=== PATIENT | female | born 1955 | race Caucasian/White ===

== ENCOUNTER 2020-01-26 10:39 | Outpatient (CLI) | payer MEDICARE, SELFPAY ==
--- NOTE | ~2020-01-26 | MR_ITS ---
EXAMINATION: MR brain/brain stem wo con DATE: 01/26/2020 11:54 INDICATION: Polyneuropathy TECHNIQUE: Magnetic resonance imaging (MRI) of the brain and brainstem was performed without intraven ous contrast. Sequences included sagittal and axial T1-weighted SE, axial diffusion-weighted FS SE, a xial T2*-weighted GRE, axial T2-weighted FLAIR, and axial T2-weighted FSE. Apparent diffusion coeffic ient (ADC) maps were created. COMPARISON: None. FINDINGS: There are no areas of restricted diffusion to suggest acute infarction. No intracranial hemorrhage or abnormal intracranial mass lesion. There are no intraparenchymal signal abnormalities seen on the ot her pulse sequences. The ventricles are symmetric and normal in size. There are no abnormal extra-axi al fluid collections. Flow voids are seen in the cerebral arteries on the T2-weighted sequences consi stent with their expected patency. Left vertebral artery is dominant. Visualized orbits and soft tiss ues are unremarkable. Mild mucosal thickening in the bilateral ethmoid sinuses. IMPRESSION: 1. Normal brain. Reviewed, dictated and finalized at location A. IMPRESSION: 1. Normal brain.
== END 2020-01-26 10:40 | disposition home or self-care (01) ==
PROVIDERS: PCP Internal Medicine; Visit Provider Internal Medicine
DX: M25.572 Pain in left ankle and joints of left foot (principal)
CPT/HCPCS: 70551

== ENCOUNTER 2022-06-23 14:01 | Outpatient (CLI) | payer MEDICARE, SELFPAY ==
--- NOTE | ~2022-06-23 | XR_ITS ---
EXAMINATION: XR foot LT min 3V, XR foot RT min 3V DATE: 06/23/2022 14:48 INDICATION: Polyneuropathy with paresthesias at both feet TECHNIQUE: 1. Dorsoplantar, two oblique and lateral views of the left foot were obtained. 2. Dorsoplantar, two oblique and lateral views of the right foot were obtained. COMPARISON: None. FINDINGS: Bilateral hallux valgus and associated bunions with mild hypertrophic change at the medial heads of t he bilateral first metatarsals. There is also mild bilateral pes planus. No fractures. Moderate-sized bilateral plantar calcaneal spurs. Mild polyarticular osteoarthritis most prominent at the bilateral first metatarsophalangeal joints and to lesser degree at multiple additional joints in the bilateral feet. Large likely benign lytic lesion measuring 1.3 cm in diameter with well-defined thin sclerotic margins within the left navicula most likely representing a large geode. Soft tissues are unremarkab le. No ankle joint effusions. IMPRESSION: 1. Bilateral pes planus and hallux valgus with bunion formation. 2. Mild polyarticular osteoarthritis at the bilateral feet most prominent at the first metatarsophala ngeal joints and with likely associated large geode within the left navicula. Reviewed, dictated and finalized at location B. IMPRESSION: 1. Bilateral pes planus and hallux valgus with bunion formation. 2. Mild polyarticular osteoarthritis at the bilateral feet most prominent at th e first metatarsophalangeal joints and with likely associated large geode withi n the left navicula.
== END 2022-06-23 14:02 | disposition home or self-care (01) ==
PROVIDERS: PCP Internal Medicine; Visit Provider Internal Medicine
DX: G62.9 Polyneuropathy, unspecified (principal); M19.071 Primary osteoarthritis, right ankle and foot; M19.072 Primary osteoarthritis, left ankle and foot; M20.11 Hallux valgus (acquired), right foot; M20.12 Hallux valgus (acquired), left foot; M21.42 Flat foot [pes planus] (acquired), left foot; M21.41 Flat foot [pes planus] (acquired), right foot
CPT/HCPCS: 73630

== ENCOUNTER 2022-11-17 14:07 | Outpatient (CLI) | payer MEDICARE, SELFPAY ==
--- NOTE | ~2022-11-17 | XR_ITS ---
XR cervical spine 4-5V DATE: 11/17/2022 14:47 INDICATION: Neck pain, radiating to both upper extremities. No injury. TECHNIQUE: AP view. Lateral views in flexion, neutral and extension. COMPARISON: None FINDINGS: There is approximately 1.5-2 mm anterolisthesis at C2-3, relatively stable in flexion, exte nsion and neutral. Moderate degenerative disc disease at C5-C6, moderately severe degenerative disc disease at C6-7. Minimal anterolisthesis at C7-T1. There is degenerative change at the apophyseal joints and minimal lower cervical uncovertebral joints . No fracture or dislocation or locked facet or prevertebral soft tissue swelling. IMPRESSION: Cervical spondylosis Reviewed, dictated and finalized at location B. STRIAL ENGINEERING MANAGER IMPRESSION: Cervical spondylosis
== END 2022-11-17 14:08 | disposition home or self-care (01) ==
PROVIDERS: PCP Internal Medicine; Visit Provider Internal Medicine
DX: M47.892 Other spondylosis, cervical region (principal)
CPT/HCPCS: 72050

== ENCOUNTER 2023-04-19 13:48 | Outpatient (CLI) | payer MEDICARE, SELFPAY ==
--- NOTE | ~2023-04-19 | XR_ITS ---
Clinical Indication: Cough PA and lateral views of the chest: Comparison: 10/28/2014 Findings: The lungs are clear, without evidence of focal consolidation or pleural effusion. COPD manolo leta present. Cardiomediastinal silhouette is within normal limits. Bones and soft tissues are unremar kable. Impression: COPD. Clear lungs. Reviewed, dictated and finalized at location . Impression: COPD. Clear lungs.
[2023-04-19 14:17] LABS: Basophils Absolute Auto 0.1 K/mm3 (0.0-0.1); Basophils Percent Auto 0.8 % (0.2-1.2); Eosinophils Absolute Auto 0.1 K/mm3 (0-0.3); Eosinophils Percent Auto 1.6 % (0-4.4); Hematocrit 39.4 % (37.0-47.0); Hemoglobin 12.5 g/dL (12.0-15.0); Immature Granulocyte Absolute 0.02 K/mm3 (0.00-0.031); Immature Granulocyte Percent A 0.3 % (0-0.5); Lymphocytes Absolute Auto 1.35 K/mm3 (0.9-3.2); Lymphocytes Percent Auto 20.9 % (18.3-44.2); Mean Corpuscular HGB Conc 31.7 g/dl (32-36); Mean Corpuscular Hemoglobin 29.7 pg (26-34); Mean Corpuscular Volume 93.6 fl (80-100); Mean Platelet Volume 10.7 fl (7.4-10.4); Monocytes Absolute Auto 0.4 K/mm3 (0.1-0.6); Monocytes Percent Auto 6.8 % (2.6-8.5); Neutrophils Absolute Auto 4.5 K/mm3 (1.3-6.7); Neutrophils Percent Auto 69.6 % (45.5-73.1); Platelet Count Result 230 k/mm3 (150-375); Red Blood Count 4.21 M/mm3 (4.2-5.4); Red Cell Distribution Width 13.4 % (11.5-14.5); White Blood Count 6.5 K/mm3 (4.5-10.0)
== END 2023-04-19 13:49 | disposition home or self-care (01) ==
PROVIDERS: PCP Internal Medicine; Visit Provider Internal Medicine
DX: R05.9 Cough, unspecified (principal); J44.9 Chronic obstructive pulmonary disease, unspecified
CPT/HCPCS: 36415; 71046; 85025; 87081

== ENCOUNTER 2023-07-05 10:50 | Outpatient (CLI) | payer MEDICARE, SELFPAY | END 2023-07-05 10:51 | disposition home or self-care (01) | LOC: ANHAUDIO 10:50 | PROVIDERS: PCP Internal Medicine; Visit Provider Otolaryngology | DX: H90.3 Sensorineural hearing loss, bilateral (principal) | CPT/HCPCS: 92557; 92567 ==

== ENCOUNTER 2024-07-09 14:19 | Outpatient (CLI) | payer MEDICARE, SELFPAY ==
--- NOTE | ~2024-07-09 | XR_ITS ---
Clinical Indication: Cough PA and lateral views of the chest: Comparison: 04/19/2023 Findings: The lungs are clear, without evidence of focal consolidation or pleural effusion. Possible COPD. Cardiomediastinal silhouette is within normal limits. Bones and soft tissues are unremarkable. Impression: Clear lungs. Possible COPD. Reviewed, dictated and finalized at location . Impression: Clear lungs. Possible COPD.
[2024-07-09 16:34] LABS: Basophils Percent Auto 0.4 % (0.2-1.2); Eosinophils Absolute Auto 0.1 K/mm3 (0-0.3); Eosinophils Percent Auto 0.7 % (0-4.4); Hematocrit 36.8 % (37.0-47.0); Hemoglobin 11.8 g/dL (12.0-15.0); Immature Granulocyte Absolute 0.03 K/mm3 (0.00-0.031); Immature Granulocyte Percent A 0.4 % (0-0.5); Lymphocytes Absolute Auto 1.13 K/mm3 (0.9-3.2); Lymphocytes Percent Auto 14.1 % (18.3-44.2); Mean Corpuscular HGB Conc 32.1 g/dl (32-36); Mean Corpuscular Hemoglobin 29.6 pg (26-34); Mean Corpuscular Volume 92.2 fl (80-100); Mean Platelet Volume 11.7 fl (7.4-10.4); Monocytes Absolute Auto 0.8 K/mm3 (0.1-0.6); Monocytes Percent Auto 10.2 % (2.6-8.5); Neutrophils Percent Auto 74.2 % (45.5-73.1); Platelet Count Result 197 k/mm3 (150-375); Red Blood Count 3.99 M/mm3 (4.2-5.4); Red Cell Distribution Width 14.3 % (11.5-14.5)
[2024-07-09 17:11] LABS: Influenza A QL RT-PCR Negative (Negative); Influenza B QL RT-PCR Negative (Negative); RSV RNA, RT-PCR Negative (Negative); SARS-CoV-2 RNA PCR Negative (Negative)
== END 2024-07-09 14:20 | disposition home or self-care (01) ==
LOC: ANHIMG 14:21
PROVIDERS: PCP Internal Medicine; Visit Provider Internal Medicine
DX: R05.9 Cough, unspecified (principal); Z20.828 Contact with and (suspected) exposure to other viral communicable diseases
CPT/HCPCS: 36415; 71046; 85025; 87637

== ENCOUNTER 2024-12-03 09:24 | Outpatient (CLI) | payer MEDICARE, SELFPAY ==
--- OUTSIDE RECORDS SUMMARY | 2024-12-03 10:24 | XMS_ITS | Patient Health Record ---
Author Organization [facility] Address [address] [place] [address] Care Team Providers Care Senior Game Advisor Name Role Phone Yuniel Mauricio Primary Care Provider UnavailHannah Schroeder Unavailable [phone] [facility], Provider Unavailable Unavailab le Allergies Allergen (clinical drug ingredient) Drug/Non Drug Allergy documented on EMR Reaction Allergy Type Onset Date Status MRI CONTRAST (uncoded) unknown reaction Allergy Active Substance with sulfonamide structure and antibacterial mechanism of action (substance) SULFA (uncoded) hives Allergy Active erythromycin Erythromycin hives Drug Allergy A ctive penicillin V Penicillin V Potassium hives Drug Allergy Active Medicinal cephalosporin and acting as antibacterial agent (FN) Cephalosporins unknown reaction Drug Allergy Active Reason For Referral No Information Medications Medication SIG (Take, Route, Frequency, Duration) Notes Start Date End Date Status Ketoconazole 2 % 1 savannah applied topica lly twice a day as needed Active Triamcinolone Acetonide 0.1 % 1 savannah applied topically 2 times a day as needed Active AZELASTINE NASAL 137 mcg/inh 2 spray(s) intranasally 2 times a day for 30 day(s) Active Vitamin D3 25 MCG 1 tab(s) orally once a day Active LEVOCETIRIZINE 5 mg 1 tab(s) orally once a day (in the evening) for 30 day(s) Active Levocetirizine Dihydrochloride 5 MG 1 tab(s) orally once a day (in the evening) for 30 day(s) 12/28/2023 Active Famciclovir 500 MG 3 tab(s) orally as needed Active Azelastine HCl 137 MCG/SPRAY 2 spray(s) intranasally 2 times a day for 30 day(s) 12/28/2023 Active Social History Tobacco Use: Social History Observation Description Date Details (start date - stop date) Never Smoker NA - NA Tobacco Control (Standard) Question Answer Notes Tobacco use: Nonsmoker Problems Problem Type SNOMED Code ICD Code Onset Dates Problem Status W/U Status Risk Notes Problem Allergy to penicillin (76238288) Allergy status to penicillin (Z88.0) Active confirmed Problem Chronic allergic conjunctivitis (74245672) Other chronic allergic conjunctivitis (H10.45) Active confirmed Problem Allergic rhinitis (07868001) Other allergic rhinitis (J30.89) Active confirmed Problem Food allergy (795355178) Allergy to other foods (Z91.018) Active confirmed Problem Allergic rhinitis caused by animal hair and dander (289485741593651) Allergic rhinitis due to animal (cat) (dog) hair and dander (J30.81) Active confirmed Problem Allergy status t o other antibiotic agents (Z88.1) Active confirmed Vital Signs Respiratory Rate 18 /min 12/28/2023 Oximetry 99 % 05/22/2024 Blood pressure diastolic 66 mm Hg 05/22/2024 Height 66 in 05/22/2024 Blood pressure systolic 115 mm Hg 05/22/2024 Weight 135.0 lbs 05/22/2024 BMI 21.79 kg/m2 05/22/2024 Encounters Encounter Location Date Provider Diagnosis [facility] [address] [place] [address] 02/25/2024 Provider ZZ-Migration [facility] [employer] [address] [address] 12/28/2023 Hannah Bernal Allergic rhinitis du e to animal (cat) (dog) hair and dander J30.81 ; Allergy to other foods Z91.018 ; Other allergic rhinitis J30.89 ; Other chronic allergic conjunctivitis H10.45 ; Allergy status to penicillin Z88.0 and Allergy status to other antibiotic agents Z88.1 [facility] [address] [employer] [address] [place] [address] 05/22/2024 Hannah Bernal Allergy status to penicillin Z88.0 ; Allergy status to other antibiotic agents Z88.1 ; Allergic rhinitis due to animal (cat) (dog) hair and dander J30.81 ; Allergy to other foods Z91.018 ; Other allergic rhinitis J30.89 and Other chronic allergic conjunctivitis H10.45 [facility] [address] [place] [address] 07/10/2024 Hannah Bernal Assessments Encounter Date Diagnosis (ICD Code) Assessment Notes Treatment Notes Treatment Clinical Notes Section Notes 12/28/2023 Allergic rhinitis due to animal (cat) (dog) hair and dander (ICD-10 - J30.81) Given the history and symptoms, skin testing was performed to common aeroallergens to determine atopic status. Leonarda clearly suffers from atopic disease based upon our skin testing today. Accordingly, we have introduced a new, aggressive medication regimen, discussed nasal washes and allergy-specific avoidance measures. 12/28/2023 Allergy to other foods (ICD-10 - Z91.018) We discussed that false positives are common with ImmunoCAPs. Sesame Seed IgE 0.1 and no history of reaction. Recommend reintroducing sesame see into her diet since tolerated in the past. 05/22/2024 Allergy status to penicillin (ICD-10 - Z88.0) Leonarda has a history of rash in childhood after taking penicillin. Today we performed skin testing to penicillin reagents (Pre-Pen and Aaliyah) in accordance with sales promotion manager's guidelines, and all tests were negative with appropriate control responses. The patient subsequently received amoxicillin in 2 graded doses (cumulative dose of 500 mg) and tolerated the procedure without signs or symptoms of hypersensitivity reaction after >60 minutes of total observation. Please refer to Procedures section for full details. At this point, the patient is at no greater risk than the general population for an IgE-mediated beta-lactam reaction, thus likely to be to be able to safely receive any beta-lactam antibiotic without risk of acute, IgE-mediated hypersensitivity reaction. Therefore, penicillin allergy should be removed from this patient's medical record and can be used PRN as clinically indicated. Please note that today's testing and successful medication challenge did not rule out the possibility of delayed-type (cell-mediated) hypersensitivity reaction to beta-lactam antibiotics. Follow up with me as scheduled. 05/22/2024 Allergy status to other antibiotic agents (ICD-10 - Z88.1) 05/22/2024 Allergic rhinitis due to animal (cat) (dog) hair and dander (ICD-10 - J30.81) Leonarda clearly suffers from atopic disease based upon our skin testing. Accordingly, we have introduced a new, aggressive medication regimen, discussed nasal washes and allergy-specific avoidance measures. 12/28/2023 Other allergic rhinitis (ICD-10 - J30.89) 12/28/2023 Other chronic allergic conjunctivitis (ICD-10 - H10.45) Given ocular signs and symptoms I encouraged allergy avoidance measures and meds as above. If symptoms persist, consider adding additional medications including intraocular antihistamine/mast cell stabilizer, PRN 05/22/2024 Allergy to other foods (ICD-10 - Z91.018) We discussed that false positives are common with ImmunoCAPs. Sesame Seed IgE 0.1 and no history of reaction. She has since eaten sesame seeds without event. 12/28/2023 Allergy status to penicillin (ICD-10 - Z88.0) Leonarda has a history of rash in childhood after taking penicillin. We discussed penicillin skin testing and amoxicillin challenge. She would like to be contacted for the next skin testing date. 05/22/2024 Other allergic rhinitis (ICD-10 - J30.89) 05/22/2024 Other chronic allergic conjunctivitis (ICD-10 - H10.45) Given ocular signs and symptoms I encouraged allergy avoidance measures and meds as above. If symptoms persist, consider adding additional medications including intraocular antihistamine/mast cell stabilizer, PRN 12/28/2023 Allergy status to other antibiotic agents (ICD-10 - Z88.1) 12/28/2023 Other 05/22/2024 Other Plan Of Treatment No Information Insurance Providers Payer Name Payer Address Payer Phone Subscriber Number Group Number Insured Name Patient Relationship to Insured Coverage Start Date Coverage End Date [employer] (Medicare) Attention Claims [address] [place] [address] [id number] Leonarda Beltran Self - patient is the insured [facility] [address] [place] [address] [id number] Leonarda Beltran Self - patient is the insured Medical (General) History Medical History History ICD Code Allergy to other foods Z91.018 Surgical History Surgery Date(Month/Year) Tonsillectomy c section Breast surgery
--- OUTSIDE RECORDS SUMMARY | 2024-12-03 10:24 | XMS_ITS ---
Author Organization [facility] Address [address] [place] [address] Care Team Providers Care Jewel Bearing Broacher Name Role Phone Inéseleanor Yuniel Primary Care Provider UnavailHannah Schroeder Unavailable [phone] [facility]-Migration, Provider Unavailable Unavailab le Allergies Allergen [...] (FN) Cephalosporins unknown reaction Drug Allergy Active REASON FOR VISIT [facility] To [facility] Conversion Encounter Medications Medication SIG (Take, Route, Frequency, Duration) Notes Start Date End Date Status Levocetirizine Dihydrochloride 5 MG 1 tab(s) orally once a day (in the evening) for 30 day(s) 12/28/2023 Active Azelastine HCl 137 MCG/SPRAY 2 spray(s) intranasally 2 times a day for 30 day(s) 12/28/2023 Active Triamcinolone Acetonide 0.1 % 1 savannah applied topically 2 times a day as needed Active Famciclovir 500 MG 3 tab(s) orally as needed Active Vitamin D3 25 MCG 1 tab(s) orally once a day Active Ketoconazole 2 % 1 savannah applied topica lly twice a day as needed Active Encounters Encounter Location Date Provider Diagnosis [facility] [address] [place] [address] 02/25/2024 Provider ZZ-Migration Plan Of Treatment Medication Medication Name Sig Start Date Stop Date Notes Levocetirizine Dihydrochlori de 5 MG 1 tab(s) orally once a day (in the evening) for 30 day(s) 12/28/2023 Azelastine HCl 137 MCG/SPRAY 2 spray(s) intranasally 2 times a day for 30 day(s) 12/28/2023 Progress Notes * Leonarda BELTRANDOB: (69 yo F)Acc No.[id number]:02/25/2024 Patient: Lenka TEIXEIRAhleen Provider: Jhonny Urban :1955 A ge:69 Y S ex:Female Date:02/25/2024 Address:[address] [place], [place] [id number] Pcp:Yuniel Mauricio Subjective: * Chief Complaints: * [facility] . [facility] * Medical History: * Medications: T aking Ketoconazole 2 % Cream 1 savannah applied topically twice a day as needed , Taking Triamcinolone Acetonide 0.1 % Cream 1 savannah applied topically 2 times a day as needed , Taking Famciclovir 500 MG Tablet 3 tab(s) orally as needed , Taking Vitamin D3 25 MCG Tablet 1 tab(s) orally once a day * Allergies: S ULFA: hives, MRI CONTRAST: unknown reaction, Cephalosporins: unknown reaction, Erythromycin: hives, Penicillin V Potassium: hives. Objective: * Vitals: Assessment: Plan: * Treatment: * Billing Information: * Visit Code: * Procedure Codes: * Electronic signature of Eliot hicks ZZ-Migration on 12/03/2024 at 10:24 AM CDT Sign off status: Pending * Provider: Jhonny Urban Date: 02/25/2024 Generated for Mariama stoddard/Alice/Daryn on: 12/03/2024 10:24 AM CDT
--- OUTSIDE RECORDS SUMMARY | 2024-12-03 10:24 | XMS_ITS | Clinical Summary ---
Author Organization [facility] Address [address] [place] [address] Care Team Providers Care Psychiatry Instructor Name Role Phone Yuniel Mauricio MD Primary Care Provider Source Comments [facility],non-owned Affiliates and Associated Physician Practices is amultiple site organization consisting of ambulatory clinics and hospital sitesin [place], [place], [place] and [place]. This disclosure is being madepursuant to the Care Everywhere program and may not contain all information available regarding this patient. Last updated 18.[facility] Allergies Active Allergy Reactions Criticality Noted Date Comments Cephalosporins Rash Medium 04/16/2015 Erythromycin Urticaria Medium 09/07/2019 Penicillins Rash Medium 11/08/2006 Sulfa Antibiotics Unknown 01/03/2024 Medications * Be aware that medications may not be up to date on this document. Alwaysverify current medications with the patient. Medication Sig Dispensed Refills Start Date End Date Status Vitamin D3 (CHOLECALCIFEROL) 50 MCG (1999) capsule Take 1,000 Units by mouth once daily Active ibuprofen (Motrin) 200 MG tablet Take 1 (one) tablet by mouth as needed Active methylcellulose (Citrucel) 500 MG tablet Take 1 (one) tablet by mouth once daily as needed Active CALCIUM CITRATE 600 mg TABS tablet Take 400 (four hundred) mg by mouth once daily Active famciclovir (Famvir) 500 MG tablet Take 1 (one) tablet by mouth once daily as needed Active Active Problems Problem Noted Date Diagnosed Date Tarsal tunnel syndrome of both lower extremities 12/22/2022 Immunizations Name Administration Dates Next Due COVID MODERNA BIVALENT 12Y+ 50MCG/0.5ML 11/30/20 22 MODERNA SARS-COV-2 COVID-19 VACCINE 0.25ML 12/25 Family History Medical History Relation Name Comments Cancer Brother CVA Father Cancer Mother Cataract Mother High Cholesterol Mother Hypertension Mother Thyroid Disease Mother Hypertension Sister Other - Psychiatric Sister Thyroid Disease Sister Relation Name Status Comments Brother Father Mother Sister Social History Tobacco Use Types Packs/Day Years Used Date Smoking Tobacco: Never Smokeless Tobacco: Never Tobacco Cessation:Counseling Given: Not Answered Sex and Gender Information Value Date Recorded Sex Assigned at Not on file Gender Identity Not on file Sexual Orientation Not on file Last Filed Vital Signs Vital Sign Reading Time Taken Comments Blood Pressure 118/66 01/03/2024 2:20 PM CDT Pulse 68 01/03/2024 2:20 PM CDT Temperature 37 C (98.6 F) 09/07/2019 4:34 PM COMMERCIAL LENDING RELATIONSHIP MANAGER Respiratory Rate 14 01/03/2024 2:20 PM CDT Oxygen Saturation 99% 01/03/2024 2:20 PM CDT Inhaled Oxygen Concentration - - Weight 61.2 kg (135 lb) 01/03/2024 2:20 PM CDT Height 167.6 cm (5' 6 ) 01/03/2024 2:20 PM CDT Body Mass Index 21.79 01/03/2024 2:20 PM CDT Plan of Treatment Upcoming Encounters Date Type Department Care Team (Late st Contact Info) Description 01/08/2025 2:00 PM CDT Office Visit [facility] [address] [place] [address] [place] [address] [facility] [address] [place] [address] Health Maintenance Due Date Last Done Comments COLOGUARD (AGES 45-75) - COLON CA SCREENING 1955 COLON MONITORING 1955 COLONOSCOPY - COLON CA SCREENING 1955 CT COLONOGRAPHY - COLON CA SCREENING 1955 Colorectal Cancer Screening 1955 FIT - COLON CA SCREENING 1955 FLEX SIG - COLON CA SCREENING 1955 LIPID TESTING 1955 MEDICARE AWV 12 MONTHS 1955 HEPATITIS C SCREENING 01/17/1973 DTAP/TDAP/TD VACCINES (1 - Tdap) 1974 PNEUMOCOCCAL VACCINE 50+ (1 of 1 - PCV) 2005 ZOSTER VACCINE (1 of 2) 2005 COVID-19 VACCINE ( - season) 2024 08/11/2022, 12/25/2021, 07/17/2021, Additional history exists INFLUENZA VACCINE (#1) 2024 , 06/23/2020, 06/19/2019, Additional history exists DEPRESSION SCREENING 09/12/2024 MAMMOGRAM 03/28/2026 03/28/2024, 03/12, 03/29/2023, Additional history exists Respiratory Syncytial Virus (RSV) Vaccine Pt: or over 60 yrs (1 - 1-dose 75+ series) 2030 BONE DENSITY TESTING Completed 01/05/2023, 12/31/2020, 07/05/2018, Additional history exists HEPATITIS B VACCINE Aged Out No longe r eligible based on patient's age to complete this topic HIB VACCINE Aged Out No longer eligi ble based on patient's age to complete this topic HPV VACCINE Aged Out No longer eligi ble based on patient's age to complete this topic MENINGOCOCCAL (Group B) VACCINE SHARED DECISION-MAKING Aged Out No longer eligible based on patient's age to complete this topic MENINGOCOCCAL GROUPS A/C/Y/W VACCINE Aged Out No longer eligible based on patient's age to complete this topic Care Teams Psychiatry Instructor Relationship Specialty Start Date End Date Yuniel Mauricio MD [address] [place] [address] PCP - General Internal Medicine 11/18/22
--- OUTSIDE RECORDS SUMMARY | 2024-12-03 10:24 | XMS_ITS | Encounter Summary ---
Author Organization [facility] Address [address] [place] [address] Phone Care Team Providers Care Third Miller Name Role Phone Jennifer Matamoros MD Unavailable Juanjose Judd MD PhD Unavailable Galen Yuen MD Unavailable [phone] Barbara Blount MD Unavailable Rik Smith MD Unavailable [phone] Paul Sawyer MD Unavailable [phone] Yuniel Mauricio MD Primary Care Provider [phone] Renaldo Ortega MD Unavailable [phone] Encounter Details Date Type Department Care Team (Late st Contact Info) Description 08/27/2022 Orders Only [facility] Scanning, Provider Social History Tobacco Use Types Packs/Day Years Used Date Smoking Tobacco: Never Smokeless Tobacco: Never Alcohol Use Standard Drinks/Week Comments Not Currently 0 (1 standard drink = 0.6 oz pur e alcohol) since on gabapentin Social Connection and Isolation Panel [NHANES] A nswer Date Recorded Frequency of Communication with Friends and Fami ly Not on file 07/18/2019 Frequency of Social Gatherings with Friends and Family Not on file 07/18/2019 Attends Hindu Services Not on file 07/18 Active Member of Clubs or Organizations Not on f ile 07/18/2019 Attends Club or Organization Meetings Not on mary anne e 07/18/2019 Marital Status 07/18/2019 AUDIT-C Answer Date Recorded Q1: How often do you have a drink containing alc ohol? Monthly or less 03/02/2022 Q2: How many drinks containi ng alcohol do you have on a typical day when you are drinking? 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 Gender Identity Female 02/06/2019 11:40 AM CDT Sexual Orientation Not on file Occupation Industry Job Start Date Job End Date Retired Not on file Not on file Not on file documented as of this encounter Plan of Treatment Not on file documented as of this encounter Procedures Procedure Name Priority Date/Time Associated Diagnosis Comments SCAN - LABS 08/27/2022 documented in this encounter Results * SCAN - LABS (08/27/2022) us Provider Scanning Final Result documented in this encounter Visit Diagnoses Not on filedocumented in this encounter Care Teams Third Miller Relationship Specialty Start Date End Date Yuniel Mauricio MD [address] [facility] [place], [place] [id number] PCP - General Internal Medicine 03/04/20 Jennifer Matamoros MD [address] [place] [address] Referring Physician Obstetrics and Gynecology 06/26/18 Juanjose Judd MD PhD [address] [place] [address] Referring Physician Neurology 06/26/18 [place] [address] * [place] [address] Consulting Physician Gastroenterology 06/26/18 Barbara Blount MD [address] [place] [address] Surgeon Surgical Oncology 06/26/18 Rik Smith MD [address] [place] [address] Referring Physician Ophthalmology 06/26/18 Paul Sawyer MD [address] [place] [address] Referring Physician Dermatology 06/26/18 Renaldo Ortega MD [address] [facility] [place] [id number] [place] [address] Surgeon Thoracic Surgery 03/02/22 documented as of this encounter
--- OUTSIDE RECORDS SUMMARY | 2024-12-03 10:25 | XMS_ITS | Encounter Summary ---
Author Organization [facility] Address [address] [place] [address] Phone Care Team Providers Care Grinding Wheel Operator Name Role Phone Juanjose Katz MD Primary Care Provider Jennifer Matamoros MD Unavailable [phone] [facility] m[facility] MD PhD Unavailable Galen Yuen MD Unavailable [phone] Barbara Blount MD Unavailable [phone] Rik Smith MD Unavailable [phone] Paul Sawyer MD Unavailable [phone] Yuniel Mauricio MD Primary Care Provider [phone] Renaldo Ortega MD Unavailable [phone] Encounter Details Date Type Department Care Team (Late st Contact Info) Description 04/30/2019 Orders Only [facility] Neuro Muscle [address] [facility] 6th [place] [address] [place] [address] Amanda Padilla Social History Tobacco Use Types Packs/Day Years Used Date Smoking Tobacco: Never Smokeless Tobacco: Never Alcohol Use Standard Drinks/Week Comments Yes 0 (1 standard drink = 0.6 oz pur e alcohol) wine, 1 drink per week PHQ-2 Answer Date Recorded PHQ-2 Score 0 05/03/2019 Comments No Sex and Gender Information Value Date Recorded Sex Assigned at Not on file Legal Sex Female 7:57 PM STORE HAND Gender Identity Female 02/06/2019 11:40 AM CDT Sexual Orientation Not on file documented as of this encounter Plan of Treatment Not on file documented as of this encounter Visit Diagnoses Not on filedocumented in this encounter Care Teams Grinding Wheel Operator Relationship Specialty Start Date End Date Juanjose Katz MD PCP - General 12/15/17 03/03/20 Yuniel Mauricio MD [address] [place] [address] PCP - General Internal Medicine 03/04/20 Jennifer Matamoros MD [address] [place] [address] Referring Physician Obstetrics and Gynecology 06/26/18 Juanjose Judd MD PhD [address] [facility] [facility] [address] [place] [address] Referring Physician Neurology 06/26/18 [place] [address] [facility] * [place] [address] Consulting Physician Gastroenterology 06/26/18 Barbara Blount MD [address] [place] [address] Surgeon Surgical Oncology 06/26/18 Rik Smith MD [address] [place] [address] Referring Physician Ophthalmology 06/26/18 Paul Sawyer MD [address] [place] [address] Referring Physician Dermatology 06/26/18 Renaldo Ortega MD [address] [facility] [id number] [place] [address] Surgeon Thoracic Surgery 03/02/22 documented as of this encounter
--- OUTSIDE RECORDS SUMMARY | 2024-12-03 10:25 | XMS_ITS ---
Author Organization [facility] Address [address] [place] [address] Care Team Providers Care Market Research Assistant Name Role Phone Inéseleanor Yuniel Primary Care Provider Hannah Rondon Unavailable [phone] REASON FOR VISIT Medication Encounters Encounter Location Date Provider Diagnosis [facility] [address] [place] [address] 07/10/2024 Hannah Bernal Plan Of Treatment No Information Progress Notes * Leonarda BELTRANDOB: (69 yo F)Acc No.[id number]:07/10/2024 Patient: Leonarda TEIXEIRA :1955 A ge:69 Y S ex:Female Address:[address] [place] [address] * true * Date: Generated for Henrryi richi/Faheide/eTransmitting on: 0 12/03/2024 10:25 AM CDT
--- OUTSIDE RECORDS SUMMARY | 2024-12-03 10:25 | XMS_ITS | Referral Summary ---
Author Organization [facility] Address [address] [place] [address] Care Team Providers Care Motion Designer Name Role Phone Jennifer Matamoros MD Unavailable Juanjose Judd MD PhD Unavailable Galen Yuen MD Unavailable Barbara Blount MD Unavailable Rik Smith MD Unavailable Paul Sawyer MD Unavailable Yuniel Mauricio MD Primary Care Provider Renaldo Ortega MD Unavailable Encounters Date Type Department Care Team Description 10/04/2024 Telephone [facility] Surgery [address] [facility] [address] [place] [address] Kendal Sarkar NP Medical Question/Miscellaneous from Last 3 Months Allergies Active Allergy Reactions Criticality Noted Date Comments Cephalosporins Rash Medium 04/16/2015 Erythromycin Base Rash Medium 11/08/2006 Gadolinium-Containing Contrast Media Rash Medium 03/12/2021 Penicillins Rash Medium 11/08/2006 Sesame Unknown 01/19/2020 Sulfa (Sulfonamide Antibiotics) Rash Medium 10/14 Medications cholecalciferol (VITAMIN D-3) 25 mcg (1,000 unit) tablet 1 tablet (1,000 Units total) Active CALCIUM CITRATE ORAL Take 400 mg by mouth as needed Pt only takes when not getting enough CA in the day. 1 Active methylcellulose , laxative, (CITRUCEL) 500 mg tablet Take 1 tablet (500 mg total) by mouth daily Active ibuprofen (ADVIL,MOTRIN) 200 mg tab/cap Take 1 tablet/capsule (200 mg total) by mouth as needed for pain Active ketoconazole (NIZORAL) 2 % cream APPLY TO CORNERS OF MOUTH TWICE DAILY NEEDED 3 Active mupirocin (BACTROBAN) 2 % ointment APPLY TOPICALLY TO NOSE THREE TIMES DAILY FOR 10 DAYS 3 Active famciclovir (FAMVIR) 500 mg tablet Take 1 tablet (500 mg total) by mouth daily as needed Active Active Problems Problem Noted Date Diagnosed Date Tarsal tunnel syndrome of both lower extremities 12/22/2022 Parathyroid cyst 04/06/2022 History of breast cancer 03/12/2021 Numbness and tingling of both feet 06/19/2019 Radicular pain 02/12/2019 Breast cancer screening, high risk patient 12/26 Osteopenia of neck of femur 06/26/2018 Well woman exam with routine gynecological exam 05/16/2018 Chronic left shoulder pain 03/01/2018 Chronic lumbar radiculopathy 03/01/2018 Spinal stenosis of lumbar re gion without neurogenic claudication 03/01/2018 Resolved Problems Problem Noted Date Diagnosed Date Resolved Date Spinal stenosis of cervical region 03/01/2018 03/01/2018 Low back pain 07/08/2015 03/01/2018 Immunizations Immunization Administration Dates Next Due Hep A, Adult 08/22/2015,01/07/2015 Hep A, Unspecified 08/22/2015,01/07/2015 Hep B, Unspecified 06/17/1992,01/28/1992, 992 Influenza, Quadrivalent, Hig h Dose, Preservative Free, Intrr 06/23/2020 Influenza, Quadrivalent, Spl it, Preservative Free, Intramuscular 06/04/2018 Influenza, Trivalent, IM (MDV) 07/21/2016,2014 Influenza, Trivalent, Preser vative Free, Intramuscular 06/26/2017,07/20/2016,06/14/2015 Influenza, Unspecified 06/19/2019,06/05/2018 PPD TEST 11/16/2017,12/13/2016 Tdap 02/26/2019,09/12/2008 ZOSTER Recombinant 02/26/2019,11/17/2018 Social History Tobacco Use Types Packs/Day Years Used Date Smoking Tobacco: Never Smokeless Tobacco: Never Tobacco Cessation:Counseling Given: Not Answered Alcohol Use Standard Drinks/Week Comments Not Currently 0 (1 standard drink = 0.6 oz pur e alcohol) since on Social Connection and Isolation Panel [NHANES] A nswer Date Recorded Frequency of Communication with Friends and Fami ly Not on file 07/18/2019 Frequency of Social Gatherings with Friends and Family Not on file 07/18/2019 Attends Restorationism Services Not on file 07/18 Active Member of Clubs or Organizations Not on f ile 07/18/2019 Attends Club or Organization Meetings Not on mary anne e 07/18/2019 Marital Status 07/18/2019 AUDIT-C Answer Date Recorded Q1: How often do you have a drink containing alc ohol? Monthly or less 08/10/2023 Average Number of Drinks Not on file 023 Frequency of Binge Drinking Not on file 07/14 PHQ-2 Answer Date Recorded PHQ-2 Score 0 05/03/2019 Exercise Vital Sign Answer Date Recorde d Days of Exercise per Week 4 days 2018 Minutes of Exercise per Session 30 min 07/18/2019 Comments No Sex and Gender Information Value Date Recorded Sex Assigned at Not on file Legal Sex Female 7:57 PM MACHINE PLUG SHAPER Gender Identity Female 02/06/2019 11:40 AM CDT Sexual Orientation Not on file Occupation Industry Job Start Date Job End Date Retired Not on file Not on file Not on file Last Filed Vital Signs Vital Sign Reading Time Taken Comments Blood Pressure 125/77 08/10/2023 4:02 PM MACHINE PLUG SHAPER Pulse 74 12/18/2021 1:31 PM CDT Temperature 36.8 C (98.2 F) 11/05/2019 11:29 AM MACHINE PLUG SHAPER Respiratory Rate - - Oxygen Saturation 98% 11/05/2019 11:29 AM MACHINE PLUG SHAPER Inhaled Oxygen Concentration - - Weight 60.8 kg (134 lb 0.6 oz) 05/04/2024 2:26 P M CDT Height 167.6 cm (5' 5.98 ) 05/04/2024 2:26 PM CD T Body Mass Index 21.65 05/04/2024 2:26 PM CDT Plan of Treatment Not on file Procedures Procedure Name Priority Date/Time Associated Diagnosis Comments SCREENING MAMMOGRAM BILATERAL W SHARIF Schedule Routine, Read Routine (OP Routine) 03/28/2024 12:23 PM CDT Family history of breast cancer Encounter for screening mammogram for malignant neoplasm of breast DEXA TBS AXIAL SKELETON BONE DENSITY 1 OR MORE SITES Schedule Routine, Read Routine (OP Routine) 01/18/2024 1:40 PM CDT Osteoporosis, unspecified osteoporosis type, unspecified pathological fracture presence HEPATITIS C ANTIBODY Routine 06/28/2018 9:51 AM CDT HM COLONOSCOPY Routine 10/29/2015 from Last 3 Months or Most Recently Relevant to Health Maintenance Results * Screening Mammogram Bilateral W Sharif (03/28/2024 12:23 PM CDT) Anatomical Region Laterality Modality Breast Bilateral Mammography Narrative 03/29/2024 2:46 PM CDT Mammogram Technique: Bilateral Digital Breast Tomosynthesis, Bilateral C-view 2D Screening mammogram. Views obtained: bilateral craniocaudal and bilateral mediolateral oblique. Computer Aided Detection was performed. Mammogram Findings: The present examination has been compared to prior imaging studies performed at [facility] on 03/10/2021, 03/16/2022 and 03/29/2023. The breasts are heterogeneously dense, which may obscure small masses. There is no suspicious abnormality in either breast. Impression: There is no mammographic evidence of malignancy. Annual screening mammography is recommended. If supplemental screening is desired, breast MRI would be recommended in this patient with heterogeneously dense breasts. OVERALL FINAL ASSESSMENT: BI-RADS CATEGORY 1: Negative. Procedure Note Angela Montano MD - 03/29/2024 Mammogram Technique: Bilateral Digital Breast Tomosynthesis, Bilateral C-view 2D Screening mammogram. Views obtained: bilateral craniocaudal and bilateral mediolateral oblique. Computer Aided Detection was performed. Mammogram Findings: The present examination has been compared to prior imaging studies performed at [facility] on 03/10/2021, 03/16/2022 and 03/29/2023. The breasts are heterogeneously dense, which may obscure small masses. There is no suspicious abnormality in either breast. Impression: There is no mammographic evidence of malignancy. Annual screening mammography is recommended. If supplemental screeningis desired, breast MRI would be recommended in this patient with heterogeneously dense breasts. OVERALL FINAL ASSESSMENT: BI-RADS CATEGORY 1: Negative. us Jacinta Balderrama NP IMG MAMMO PROCEDURES Fin al Result * Dexa TBS Axial Skeleton Bone Density 1 or more sites (01/18/2024 1:40 PM CDT) Anatomical Region Laterality Modality Wrist, Body N/A Radiographic Rosa ging Narrative 01/18/2024 3:03 PM CDT Patient Name: Leonarda Nguyễn Date of : 1955 Date of scan: 01/18/2024 Bone mineral density was performed on a [employer] Discovery Densitometer. Based on machine cross-calibration and precision studies the least significant changes of this densitometer is 0.024 g/cm2 at the spine, 0.020 g/cm2 at the total proximal femur, and 0.014g/cm2 at the forearm. HISTORY: This is a 68 y.o. postmenopausal female with a history of low bone mass and vitamin D deficiency. She reports that she has never smoked. She has never used smokeless tobacco. Currently on treatment with calcium and vitamin D and current complaint of back pain. INDICATIONS: Menopause status, vitamin D deficiency, and history of low bone mass. FINDINGS: BONE MINERAL DENSITY OF THE LUMBAR SPINE Bone Mineral Density (BMD) of the lumbar spine was measured from L1-L4 and the average density was calculated to be 1.054 gm/cm2. This corresponds to a T-score (standard deviations from the mean of young adults) of 0.1. When compared to the previous study of 01/05/2023 there has been a 0.049 gm/cm (4.9%) increase in bone density that is considered significant. BONE MINERAL DENSITY OF THE PROXIMAL FEMUR Bone Mineral Density (BMD) of the left hip total was found to be 0.856 gm/cm2. This corresponds to a T-score standard deviations from the mean of young adults of -0.7. Femoral neck is 0.730 gm/cm2 with a T-score (standard deviations from the mean of young adults) of -1.1. When compared to the previous study of 01/05/2023 there has been no significant changes in bone density. SUMMARY: Bone mineral density shows evidence of low bone mass at the proximal femur and moderately increased fracture risk (Osteopenia). There has been a significant increase in bone density since previous measurement. The lumbar spine Trabecular Bone Score is 1.316 which suggests normal bone microarchitecture, compared to the general population. Final decisions regarding diagnostic or therapeutic recommendations should include BMD, TBS, additional clinical risk factors as well the clinical context of the patient. Please see attached TBS results for further details. ADDITIONAL COMMENTS: Postmenopausal Women and Men Over 50: Diagnostic criteria: Osteoporosis: BMD at or below -2.5 T-score; Osteopenia (low bone mass): BMD between -1.0 and -2.5 T-score. If the patient has a history of a fragility fracture, a fracture that occurred with trauma equivalent to a fall from a standing position or less, then the diagnosis is osteoporosis regardless of bone density. The history and data sections of the bone mineral density scan were prepared by Chelsea James)(CBDT) who is accredited by the International Society of Clinical Densitometry. The overall patient assessment and scan interpretation were performed by Leonarda Ferris M.D. who is certified by the International Society of Clinical Densitometry. [id number] Leonarda Ferris MD [facility] [place]XA PROCEDURES Final R esult * Hepatitis C antibody (06/28/2018 9:51 AM CDT) [facility] Hep C Ab <0.1 0.0 - 0.9 s/co ratio [facility] - 01 Comment: Negative: < 0.8 Indeterminate: 0.8 - 0.9 Positive: > 0.9 The CDC recommends that a positive HCV antibody result be followed up with a HCV Nucleic Acid Amplification test (966500). 06/28/2018 9:51 AM CDT 06/28/2018 Narrative [facility] - 06/29/2018 10:13 AM CDT Performed at: 01 - [address] [id number] Charging Car Operator: Tyshawn Mason PhD, Phone: [phone] us Juanjose Katz MD LAB MICROBIOLOGY - GEN ERAL ORDERABLES Final Result [facility] - 01 * COLONOSCOPY (10/29/2015) HM Colonoscopy Unknown us Historical Provider HEALTH MAINTENANCE Final Result from Last 3 Months or Most Recently Relevant to Health Maintenance Insurance MEDICARE [facility] CHOICE PLUS MEDICARE [facility] Address: [address] [place] [address] MEDICARE [facility] Care Teams Motion Designer Relationship Specialty Start Date End Date Yuniel Mauricio MD [address] INTERNAL MEDICINE [place], [place] [id number] PCP - General Internal Medicine 03/04/20 Jennifer Matamoros MD [address] [place] [address] Referring Physician Obstetrics and Gynecology 06/26/18 Juanjose Judd MD PhD [address] [facility] [address] [place], [place] [id number] Referring Physician Neurology 06/26/18 [place] [address] [facility] [facility] [place] [address] Consulting Physician Gastroenterology 06/26/18 Barbara Blount MD [address] [place] [address] Surgeon Surgical Oncology 06/26/18 Rik Smith MD [address] [place] [address] Referring Physician Ophthalmology 06/26/18 Paul Sawyer MD [address] [place] [address] Referring Physician Dermatology 06/26/18 Renaldo Ortega MD [address] [facility] [address] [place] [address] Surgeon Thoracic Surgery 03/02/22
--- OUTSIDE RECORDS SUMMARY | 2024-12-03 10:25 | XMS_ITS | Clinical Summary ---
Author Organization [facility] Address [address] [place] [address] Care Team Providers Care Claim Service Representative Name Role Phone Jennifer Matamoros MD Unavailable Juanjose Judd MD PhD Unavailable Galen Yuen MD Unavailable [phone] Barbara Blount MD Unavailable Rik Smith MD Unavailable Paul Sawyer MD Unavailable Yuneil Mauricio MD Primary Care Provider [phone] Renaldo Ortega MD Unavailable [phone] Allergies Active Allergy Reactions Criticality Noted Date [...] not getting enough CA in the day. Active methylcellulose , laxative, (CITRUCEL) 500 mg [...] 03/01/2018 03/01/2018 Low back pain 07/08/2015 03/01/2018 Encounters Date Type Department Care Team Description 10/04/2024 Telephone [facility] Floor [address] [place] [address] Kendal Sarkar NP Medical Question/Miscellaneous from Last 3 Months Immunizations Immunization Administration Dates Next Due Hep A, Adult 08/22/2015,01/07/2015 Hep A, Unspecified 08/22/2015,01/07/2015 Hep B, Unspecified 06/17/1992,01/28/1992, 992 Influenza, Quadrivalent, Hig h Dose, Preservative Free, Intrr 06/23/2020 Influenza, Quadrivalent, Spl it, Preservative Free, Intramuscular 06/04/2018 Influenza, Trivalent, IM (MDV) 07/21/2016,2014 Influenza, Trivalent, Preser vative Free, Intramuscular 06/26/2017,07/20/2016,06/14/2015 Influenza, Unspecified 06/19/2019,06/05/2018 PPD TEST 11/16/2017,12/13/2016 Tdap 02/26/2019,09/12/2008 ZOSTER Recombinant 02/26/2019,11/17/2018 Surgical History Surgery Date Site/Laterality Comments TONSILLECTOMY 09/12/1959 - 09/11/1960 SECTION BREAST SURGERY 09/12/1999 - 09/11/2000 Right re-anastamoses of the duct NERVE BIOPSY 06/12/2019 - 07/12/2019 Right US GUIDED ASPIRATION ABSCESS HEMATOMA CYST SOFT TISSUE 03/02/2022 N/A COLONOSCOPY October 2020 Medical History Medical History Date Comments Cervicalgia Anemia pre-menopause Osteopenia Allergies Tinnitus Low back pain Peripheral neuropathy Dental disease inflamed tissue Parathyroid cyst Family History Medical History Relation Name Comments Prostate cancer Brother Colonic polyp Father RF Stroke Father RF Breast cancer Maternal Grandmother bilate rally Breast cancer Maternal cousin 1 3 cousins Prostate cancer Maternal cousin 2 Aortic aneurysm Mother BF thoracic Breast cancer Mother BF Hypertension Mother BF Osteoporosis Mother BF Skin cancer Mother BF Thyroid disease Mother BF Colon cancer Paternal Grandfather GF Stroke Paternal Grandfather GF Thyroid disease Sister PF Broken bones Neg Hx Hip fracture Neg Hx Kyphosis Neg Hx Scoliosis Neg Hx Relation Name Status Comments Brother Father RF Maternal Grandmother Maternal cousin 1 Maternal cousin 2 Mother BF Alive Paternal Grandfather GF Sister PF Social History Tobacco Use Types Packs/Day Years [...] and Family Not on file 07/18/2019 Attends [employer] Services Not on file 07/18 Active Member [...] on file Legal Sex Female 7:57 PM [employer] Gender Identity Female 02/06/2019 11:40 AM CDT Sexual Orientation Not on file Occupation Industry Job Start Date Job End Date Retired Not on file Not on file Not on file Obstetrics History Para Term AB IAB SAB Ectopic Multiple Livin g Live Births 1 1 1 1 1 Date Outcome GA Total Labor Labor/2nd/3rd Weight Sex Type Anes PTL Yaquelin A1 A5 Name Clin 1990 Term M CS-LT ranv Living Comments BABY HAD DECELS Last Filed Vital Signs Vital Sign Reading Time Taken Comments Blood Pressure 125/77 08/10/2023 4:02 PM [employer] Pulse 74 12/18/2021 1:31 PM CDT Temperature 36.8 C (98.2 F) 11/05/2019 11:29 AM [employer] Respiratory Rate - - Oxygen Saturation 98% 11/05/2019 11:29 AM [employer] Inhaled Oxygen Concentration - - Weight 60.8 kg (134 lb 0.6 oz) 05/04/2024 2:26 P M CDT Height 167.6 cm (5' 5.98 ) 05/04/2024 2:26 PM CD T Body Mass Index 21.65 05/04/2024 2:26 PM CDT Plan of Treatment Health Maintenance Due Date Last Done Comments Fall Risk Assessment 1955 Pneumococcal vaccine 65+ (1 of 1 - PCV) 2005 Depression Screening 06/26/2020 06/26/2019, 06/26/20 18 Colon Cancer Screening-Colonoscopy 10/29/2020 10/29/2015 Influenza Vaccine (#1) 2024 0, 06/19/2019, 06/05/2018, Additional history exists Well Visit 65+ 08/10/2024 08/10/2023, 07/13, 07/18/2019, Additional history exists Breast Cancer Screening-Mammogram 03/28/2025 03/28/2024, 03/29/2023, 03/16/2022, Additional history exists Osteoporosis Screening-Bone Density Scan 01/17/2026 01/18/2024, 01/05/2023, 12/31/2020, Additional history exists DTaP/Tdap/Td Vaccine (3 - Td or Tdap) 02/26/2029 02/26/2019, 09/12/2008 Hepatitis B Screening Completed 06/17/1992 , 01/28/1992, 12/25/1991 Colon Cancer Screening-CT Colonography Discontinued 10/29/2015 Colon Cancer Screening-DNA Stool Discontinued 10/29/19 16 Colon Cancer Screening-FIT Discontinued 10/29/2015 Colon Cancer Screening-Sigmoidoscopy Discontinued 10/29/2015 Hepatitis C Screening Completed 06/28/2018 Zoster Vaccine Completed 02/26/2019, 11/17/2018 Procedures Procedure Name Priority Date/Time Associated Diagnosis [...] compared to prior imaging studies performed at [facility] on 03/10/2021, 03/16/2022 and 03/29/2023. The [...] compared to prior imaging studies performed at [facility] on 03/10/2021, 03/16/2022 and 03/29/2023. The [...] Bone mineral density was performed on a [employer] W[employer] Discovery Densitometer. Based on machine cross-calibration and [...] by the International Society of Clinical Densitometry. [id number] us Leonarda Ferris MD IMG DXA PROCEDURES Final R esult * Hepatitis C antibody (06/28/2018 9:51 AM CDT) Hep C Ab <0.1 0.0 - 0.9 s/co ratio [facility] - 01 Comment: Negative: < 0.8 Indeterminate: 0.8 - 0.9 Positive: > 0.9 The CDC recommends that a positive HCV antibody result be followed up with a HCV Nucleic Acid Amplification test ([id number]). 06/28/2018 9:51 AM CDT 06/28/2018 Narrative [facility] - 06/29/2018 10:13 AM CDT Performed at: [address] [place] [id number] Car Sales Associate: Tyshawn Mason PhD, Phone: [phone] Juanjose Katz MD LAB MICROBIOLOGY - GEN ERAL ORDERABLES Final Result Performing Organization Address City/State/[facility] Co de Phone Number [facility]CO [facility] - 01 * HM COLONOSCOPY (10/29/2015) Pathologist [facility] HM Colonoscopy Unknown Historical Provider HEALTH MAINTENANCE Final Result from Last 3 Months or Most Recently Relevant to Health Maintenance Insurance [facility] CHOICE PLUS MEDICARE [facility] MEDICARE [facility] Member Subscriber Plan / Payer (Ef fective 2020-Present) Name:NguyễnLeonarda faith Relation to Subscriber:Self Name:Lenka Nguyễnjolie Mercado Payer ID:[id number] Group ID:Not on file Type:COMMERCIAL Address: [address] [place] [address] [place] [address] MEDICARE [facility] Care Teams Claim Service Representative Relationship Specialty Start Date End Date Yuniel Mauricio MD [address] [place] [address] PCP - General Internal Medicine 03/04/20 Jennifer Matamoros MD [address] [place] [address] Referring Physician Obstetrics and Gynecology 06/26/18 Juanjose Judd MD PhD [address] [facility] [address] [place] [address] Referring Physician Neurology 06/26/18 [place] [address] * [place] [address] Consulting Physician Gastroenterology 06/26/18 Barbara Blount MD [address] [place] [address] Surgeon Surgical Oncology 06/26/18 Rik Smith MD [address] [place] [address] Referring Physician Ophthalmology 06/26/18 Paul Sawyer MD [address] [place] [address] Referring Physician Dermatology 06/26/18 Renaldo Ortega MD [address] [facility] [id number] [place] [address] Surgeon Thoracic Surgery 03/02/22
--- OUTSIDE RECORDS SUMMARY | 2024-12-03 10:25 | XMS_ITS ---
Author Organization [facility] Address [address] [place] [address] Care Team Providers Care Vice President Biostatistics Name Role Phone Yuniel Mauricio Primary Care Provider Hannah Rondon Unavailable [phone] Allergies Allergen (clinical drug ingredient) Drug/Non Drug [...] reaction Drug Allergy Active REASON FOR VISIT Antibiotic allergy follow-up - continues avoidance of multiple antibiotics, Food allergy Medications Medication SIG (Take, Route, Frequency, Duration) Notes Start Date End Date Status Ketoconazole 2 % 1 savannah applied topica lly twice a day as needed Active AZELASTINE NASAL 137 mcg/inh 2 spray(s) intranasally 2 times a day for 30 day(s) Active LEVOCETIRIZINE 5 mg 1 tab(s) orally [...] 2 times a day as needed Active Vitamin D3 25 MCG 1 tab(s) orally once a day Active Famciclovir 500 MG 3 tab(s) orally as needed Active Social History Tobacco Use: Social History Observation Description Date Details (start date - stop date) Never Smoker NA - NA Tobacco Control (Standard) Question Answer Notes Tobacco use: Nonsmoker Vital Signs Blood pressure systolic 115 mm Hg 05/22/20 24 Blood pressure diastolic 66 mm Hg 024 Height 66 in 05/22/2024 Weight 135.0 lbs 05/22/2024 BMI 21.79 kg/m2 05/22/2024 Oximetry 99 % 05/22/2024 Encounters Encounter Location Date Provider Diagnosis [facility] [address] [address] 05/22/2024 Hananh Bernal Allergy status to penicillin Z88.0 ; Allergy status to other antibiotic agents Z88.1 ; Allergic rhinitis due to animal (cat) (dog) hair and dander J30.81 ; Allergy to other foods Z91.018 ; Other allergic rhinitis J30.89 and Other chronic allergic conjunctivitis H10.45 Assessments Encounter Date Diagnosis (ICD Code) Assessment Notes Treatment Notes Treatment Clinical Notes Section Notes 05/22/2024 Allergy status to penicillin (ICD-10 - Z88.0) Leonarda has a history of rash in childhood after taking penicillin. Today we performed skin testing to penicillin reagents (Pre-Pen and Aaliyah) in accordance with classification case manager's guidelines, and all tests were negative [...] discussed nasal washes and allergy-specific avoidance measures. 05/22/2024 Allergy to other foods (ICD-10 - Z91.018) We discussed that false positives are common with ImmunoCAPs. Sesame Seed IgE 0.1 and no history of reaction. She has since eaten sesame seeds without event. 05/22/2024 Other allergic rhinitis (ICD-10 - J30.89) 05/22/2024 Other chronic allergic conjunctivitis (ICD-10 - H10.45) Given ocular signs and symptoms I encouraged allergy avoidance measures and meds as above. If symptoms persist, consider adding additional medications including intraocular antihistamine/mast cell stabilizer, PRN 05/22/2024 Other Plan Of Treatment Medication Medication Name Sig Start Date Stop Date Notes AZELASTINE NASAL 137 mcg/inh 2 spray(s) intranasally 2 times a day for 30 day(s) LEVOCETIRIZINE 5 mg 1 tab(s) orally once a day (in the evening) for 30 day(s) Treatment Notes Assessment Notes Allergy status to penicillin Leonarda franklin s a history of rash in childhood after taking penicillin. Today we performed skin testing to penicillin reagents (Pre-Pen and Aaliyah) in accordance with classification case manager's guidelines, and all tests were negative [...] antibiotics. Follow up with me as scheduled. Allergic rhinitis due to ani mal (cat) (dog) hair and dander Leonarda clearly suffers from atopic disease based upon our skin testing. Accordingly, we have introduced a new, aggressive medication regimen, discussed nasal washes and allergy-specific avoidance measures. Allergy to other foods We discussed that false positives are common with ImmunoCAPs. Sesame Seed IgE 0.1 and no history of reaction. She has since eaten sesame seeds without event. Other chronic allergic conjunctivitis Gi love ocular signs and symptoms I encouraged allergy avoidance measures and meds as above. If symptoms persist, consider adding additional medications including intraocular antihistamine/mast cell stabilizer, PRN Next Appt Details Follow Up: prn, Reason: Procedure Notes * Category Sub-Category Detail Notes Skin Testing Epicutaneous Epicutaneous ski n testing was performed to Pre-Pen and Pen G, revealing positive reactions to only histamine control. Negative reactions to Pre-Pen and Pen G. Positive and negative controls responded appropriately Intradermal Intradermal skin bennett ting was performed to Pre-Pen and Pen G (tested in duplicate), revealing negative reactions to both. Negative control responded appropriately, negative control responded appropriately Number of Skin Tests Perform ed (including controls): Drug: Yes Epicutaneous: 4 Intradermal: 5 Food/Medication Challenge Consent Signed? Yes Dose 1 Medication:, Amoxici llin 100 mg, Aleja Maldonado 05/22/2024 09:33:27 AM CDT > Dose 2 Medication:, Amoxici llin 400 mg, , Time of Dose:10:05Post-Dose Vitals taken at:,Aleja Maldonado 05/22/2024 11:09:34 AM CDT >,BP-105/68 HR-57 O2-100 Progress Notes * Leonarda BELTRANDOB: 5 (69 yo F)Acc No.[id number]:05/22/2024 PCN Skin Testing Patient: Leonarda TEIXEIRA Provider: Sarai Bernal MD :1955 A ge:69 Y S ex:Female Date:05/22/2024 Address:[address] [place], [place] [id number] Pcp:Yuniel Mauricio Subjective: * Chief Complaints: * A ntibiotic allergy follow-up - continues avoidance of multiple antibioticsFood allergy * HPI: * Introduction: I had the pleasure of seeing Misty Beltran, a 69 year old with history of penicillin allergy, and sesame seed allergy and rhinitis presenting for f/u evaluation of penicillin allergy. She was last evaluated 12-28-2023. She has a history of multiple antibiotic allergies. Penicillin caused hives in childhood. She took erythromycin in college and developed hives at the beginining of therapy. Sulfa causes hives. Since last visit, she has eaten sesame seed crackers and tolerated without event. In 2019, Leonarda was evaluated for persistent itching of her back. ImmunoCAP ordered by PCP showed sensitivity to ragweed and sesame seed IgE 0.1. No history of reaction to sesame seed and has tolerated in the past but strictly avoiding for the last 4 years. Itching has since resolved. She has a history of eczema on her lower legs and elbows. She follows with dairy bar manager, Dr. Maddox and applies topical steroids. Today, she reports no fevers, chills, night sweats or other constitutional symptoms, . * ROS: A LLERGY: Positive p er the HPI and history, otherwise unremarkable.?runny nose Y es. s cratchy throat N o. i tchy eyes N o. e ar fullness?No. s inus congestion N o. S PECIAL SENSES: Positve for n one. c ataracts N o. g laucoma?No. l oss of hearing N o. i tching in ears N o. r inging in ears N o.?loss of balance N o. l oss of smell N o. d ry eyes N o. e xcessive tearing Yes. i tching eyes Y es. c onjunctivitis N o. e ar infections N o.? C ONSTITUTIONAL: weight gain N o. l oss of appetite N o. f ever?No. w eakness N o. n ight sweats Y es. P ositive for n one. ? E NT: cold N o. c ough N o. e pistaxis N o. h earing loss N o. c hange in voice N o. s ore throat N o. r inging in ears?No. s inus pain N o. P ositive p er the HPI and history, otherwise unremarkable.? R ESPIRATORY: shortness of breath N o. c hest pain N o. c hest congestion N o. c ough N o. P ositive p er the HPI and history, otherwise unremakable. O PHTHALMOLOGY: diminished vision N o. e ye irritation N o. b lurring of vision N o. s easonal eye sx N o. P ositive for p er the HPI and history, otherwise unremarkable. s ensitivity to light N o. d ischarge N o. w atering Yes. s welling of the eyelids N o. r edness N o. E NDOCRINOLOGY: fatigue N o. p olydipsia N o. p olyuria N o. w eight loss N o. s leep disturbance N o. c old intolerance Y es. h eat intolerance N o. d iabetes N o. P ositive for n one. C ARDIOLOGY: chest pain N o. p alpitations N o. l eg edema?No. d izziness N o. P ositive for n one. G ASTROENTEROLOGY: dysphagia N o. a bdominal pain N o. n ausea?No. v omiting N o. c onstipation Y es. d iarrhea N o. i ndigestion?No. h emorrhoids Y es. P ositive for n one. U ROLOGY: blood in urine N o. f requent urination N o. u rinary incontinence Y es. r ecurrent UTI N o. P ositive for n one. ? D ERMATOLOGY: rash Y es. m ole Y es. l umps N o. d ry or sensitive skin Y es. h bryant (urticaria) N o. a cne N o. s kin cancer?No. P ositive for p er the HPI and history, otherwise unremakable. N EUROLOGY: headache N o. t ingling numbness Y es. s eizures N o. m mike loss N o. d izziness N o. g ait abnormality N o. P ositive for n one. H EMATOLOGY/LYMPH: Positive for n one. M USCULOSKELETAL: joint swelling N o. j oint pain N o. l eg cramps N o. j oint stiffness N o. s ciatica N o. o steoporosis N o. f racture N o. c arpal tunnel N o. g out N o. P ositive for n one. P SYCHOLOGY: high stress level Y es. d epression N o. s leep disturbances Y es. s uicidal ideation N o. e ating disorder N o. m ental or physical abuse N o. a nxiety N o. P ositive for n one. F EMALE REPRODUCTIVE: heavy periods N o. h ot flashes N o. s exually active Y es. i nfertility N o. f requent yeat infections N o. p elvic pain?Yes. b reast pain N o. n ipple discharge N o. A re you ? N o.?Are you planning on a future pregancy? N o. A ll other review of systems per the HPI and history, otherwise unremarkable. * Medical History: * Surgical History: T onsillectomy c section Breast surgery * Hospitalization/Major Diagno stic Procedure: D enies Past Hospitalization * Family History: F ather: , Yes, temporal arteritis, aortic aneurysm, breast cancer, rashes, diagnosed with Cancer. M other: , skin cancer, diagnosed with Cancer. 1 brother(s) , 2 sister(s) . 1 son(s) - healthy. . brother, prostate cancer son, seasonal allergies. * Social History: M arital Status What is your marital status? m arried A lcohol Screening Do you ever drink alcoholic beverages? Y es Number of drinks per occasion: 1 Frequency? E very other month S moking Have you ever smoked tobacco: n ever smoked Are you a : n ever smoker R ecreational drug use Have you ever used recreational drugs? N o D etails on consumption of certain products? Do you regularly consume products with aspartame; Equal or NutraSweet? N o Do you regularly consume products with artificial coloring??No Have you ever noticed worsening of your rash with these food items? N o E xercise What kind(s) of exercise do you perform regularly? w alking,weight training,cardio How often do you perform this exercise? e very other day A re any of the following personal care products containing fragrance, dye or preservatives used regularly? Shampoo: Y es Soap: N o Laundry Detergent: N o Fabric Softener: N o Deodorant: N o Perfume, cologne, after shave: N o Air freshners or other scented products: N o Hair coloring dyes or rinses: Y es O ccupation Are you currenly employed? N o Have you had any job with high exposure to fumes, chemicals, dust or other noxious substances? N o E nvironmental History Living environment: p rivate home Where is the home located? [place] Age of home: 1 0 How long have you lived there? 5 years or more How many people live in the home? 2 H ome description Basement: Y es Any water damage in basement? N o Smokers in the home? N o Smokers outside the home? N o Air Conditioning? Y es Central Air? Y es Fireplace? Y es Used how often? o ther Wood burning stove? N o Do you vacuum the home? Y es Air purification systems? N o Pillow and mattress dust-proof encasings? N o Do you use a humidifier? N o Do you own any pets? N o Fabric softeners used? N o Plants in the home? Y es Where are they kept? k itchen Is there carpeting in your bedroom? Y es Age of carpet? 1 5 Do you have [id number] carpeting? Y es What is the age of your carpeting? 2 0 What is the age of your mattress (years)? 5 What material(s) are used to manufacture your bedding and pillow? n atural fiber (e.g. cotton) What is the age of your pillow (years)? 3 What material are your bedding items made of? n atural fiber (e.g. cotton) Do you sleep with quilts or blankets or a duvet? Y es What material? f eather,natural fiber (e.g. cotton) T obacco Control (Standard) Tobacco use: N onsmoker * Medications: T akingKetoconazole 2 % Cream 1 savannah applied topically twice a day as needed Triamcinolone Acetonide 0.1 % Cream 1 savannah applied topically 2 times a day as needed Famciclovir 500 MG Tablet 3 tab(s) orally as needed Vitamin D3 25 MCG Tablet 1 tab(s) orally once a day Levocetirizine Dihydrochloride 5 MG Tablet 1 tab(s) orally once a day (in the evening) Azelastine HCl 137 MCG/SPRAY Solution 2 spray(s) intranasally 2 times a day Medication List reviewed and reconciled with the patientTaking Ketoconazole 2 % Cream 1 savannah applied topically twice a day as needed Taking Triamcinolone Acetonide 0.1 % Cream 1 savannah applied topically 2 times a day as needed Taking Famciclovir 500 MG Tablet 3 tab(s) orally as needed Taking Vitamin D3 25 MCG Tablet 1 tab(s) orally once a day Taking Levocetirizine Dihydrochloride 5 MG Tablet 1 tab(s) orally once a day (in the evening) Taking Azelastine HCl 137 MCG/SPRAY Solution 2 spray(s) intranasally 2 times a day Medication List reviewed and reconciled with the patient * Allergies: S ULFA: hivesMRI CONTRAST: unknown reactionCephalosporins: unknown reactionErythromycin: hivesPenicillin V Potassium: hivesno[Allergies Verified] Objective: * Vitals: B P:115/66mm Hg, HR:60/min, Pulse Oximetry:99%, Ht: 66 in, Wt: 135.0 lbs, BMI:21.79Index. * Examination: G eneral examination: General appearance: p leasant, well-developed, well-nourished. HEENT: c onjunctiva are clear bilaterally, no tenderness to palpation of the sinuses, TM's without evidence of acute infection, turbinates 2+ swollen and pale inferiorly bilaterally, clear rhinorrhea is present, no polyps noted, no septal perforation, posterior oropharynx is clear, no exudates, no tongue swelling, and uvula is midline. Oral cavity: n ormal, no lesions. Neck, thyroid : s upple, non-tender, no anterior cervical lymphadenopathy. Breasts : n ot performed. Heart: R RR, S1-S2, no murmurs, no rubs, no gallops. Lungs: c lear to auscultation and percussion in all lung swift, no wheezes or crackles. Neurologic exam: u nremarkable. Skin: n ormal, no rash, dermatographism, urticaria, angioedema. Peripheral pulses: n ormal (2+) bilaterally. Back: n ormal. Extremities: n ormal ROM, no clubbing, no cyanosis, no edema. Genitalia: n ot performed. Assessment: * Assessment: 1. A llergy status to penicillin - Z88.0 (Primary) 2 . A llergy status to other antibiotic agents - Z88.1 3 . A llergic rhinitis due to animal (cat) (dog) hair and dander - J30.81 4 . A llergy to other foods - Z91.018 5 . O ther allergic rhinitis - J30.89 6 . O ther chronic allergic conjunctivitis - H10.45 Plan: * Treatment: 2. A llergic rhinitis due to animal (cat) (dog) hair and dander Notes: Leonarda clearly suffers from atopic disease based upon our skin testing. Accordingly, we have introduced a new, aggressive medication regimen, discussed nasal washes and allergy-specific avoidance measures. 3. A llergy to other foods Notes: We discussed that false positives are common with ImmunoCAPs. Sesame Seed IgE 0.1 and no history of reaction. She has since eaten sesame seeds without event. 4. O ther chronic allergic conjunctivitis Notes: Given ocular signs and symptoms I encouraged allergy avoidance measures and meds as above. If symptoms persist, consider adding additional medications including intraocular antihistamine/mast cell stabilizer, PRN 5. O thers Start LEVOCETIRIZINE tablet, 5 mg, 1 tab(s), orally, once a day (in the evening), 30 day(s), 30, Refills 0; S tart AZELASTINE NASAL spray, 137 mcg/inh, 2 spray(s), intranasally, 2 times a day, 30 day(s), 1, Refills 0. * Procedures: F ood/Medication Challenge: Consent Signed? Y es. Dose 1 M edication:, Amoxicillin 100 mg, Aleja Maldonado 05/22/2024 09:33:27 AM CDT >. Dose 2 M edication:, Amoxicillin 400 mg, ,Time of Dose:10:05 Post-Dose Vitals taken at:,Aleja Maldonado 05/22/2024 11:09:34 AM CDT >,BP-105/68 HR-57 O2-100 . S kin Testing: Epicutaneous E picutaneous skin testing was performed to Pre-Pen and Pen G, revealing positive reactions to only histamine control. Negative reactions to Pre-Pen and Pen G. Positive and negative controls responded appropriately. Intradermal I ntradermal skin testing was performed to Pre-Pen and Pen G (tested in duplicate), revealing negative reactions to both. Negative control responded appropriately, negative control responded appropriately. Number of Skin Tests Performed (including controls): D rug Y es E picutaneous 4 I ntradermal 5 * Procedure Codes: 9 6160 PT-FOCUSED HLTH RISK [id number] DOC MEDS VERIFIED W/PT OR [id number] PERQ&IC ALLG TEST DRUGS/BIOL, Units: 9.00 65966 INGEST CHALLENGE INI 120 [id number] BMI<30 AND >=22 CALC & [id number] BP SCR PRFRM RCMDD DEFIND SCR INTVL * Preventive Medicine: Counseling: M edication instruction: W atch for side effects of prescribed medications, Nasal steroid/antihistamine instruction: avoid septum. E ducation: G ENERAL EDUCATION: Our staff spent an additional 30 minutes in direct contact with the patient educating them on their current diagnoses and proper treatment and prevention of symptoms and the proper use of medications. P atient education material sent to portal? Y es * Follow Up: p rn * Billing Information: * Visit Code: 51528 Office Visit, Est Pt., Level 4. Modifiers: 25 * Procedure Codes: 11888 PT-FOCUSED HLTH RISK ASSMT. G8427 DOC MEDS VERIFIED W/[place]. [address] PERQ&IC ALLG TEST DRUGS/BIOL. Units: 9.00. 74304 INGEST CHALLENGE INI 120 MIN. G8420 BMI<30 AND >=22 CALC & DOCU. G8783 BP SCR PRFRM RCMDD DEFIND SCR INTVL. Images * mobile_05/22/2024 09:06:05 mobile_05/22/2024 09:32:02 * Sign off status: Completed true * Provider: Sarai Bernal MD Date: 0 05/22/2024 Generated for Printi ng/Alice/eTransmitting on: 0 12/03/2024 10:24 AM CDT History and Physical Notes * HPI (History of Present Illness) Category Sub-Category Detail Notes Category Not es *Introduction I had the pleasure o f seeing Leonarda Beltran, a 69 year old with history of penicillin allergy, and sesame seed allergy and rhinitis presenting for f/u evaluation of penicillin allergy. She was last evaluated 12-28-2023. She has a history of multiple antibiotic allergies. Penicillin caused hives in childhood. She took erythromycin in college and developed hives at the beginining of therapy. Sulfa causes hives. Since last visit, she has eaten sesame seed crackers and tolerated without event. In 2019, Lenoarda was evaluated for persistent itching of her back. ImmunoCAP ordered by PCP showed sensitivity to ragweed and sesame seed IgE 0.1. No history of reaction to sesame seed and has tolerated in the past but strictly avoiding for the last 4 years. Itching has since resolved. She has a history of eczema on her lower legs and elbows. She follows with dairy bar manager, Dr. Maddox and applies topical steroids. Today, she reports no fevers, chills, night sweats or other constitutional symptoms, Examination Category Sub-Category Detail Notes Category Not es General examination HEENT: conjunctiva are clear bilaterally, no tenderness to palpation of the sinuses, TM's without evidence of acute infection, turbinates 2+ swollen and pale inferiorly bilaterally, clear rhinorrhea is present, no polyps noted, no septal perforation, posterior oropharynx is clear, no exudates, no tongue swelling, and uvula is midline Neck, thyroid : supple, non-tender, no anterior cervical lymphadenopathy Heart: RRR, S1-S2, no murmu rs, no rubs, no gallops Lungs: clear to auscultatio n and percussion in all lung swift, no wheezes or crackles Abdomen: Extremities: normal ROM, no clubb ing, no cyanosis, no edema General appearance: pleasant, well-devel oped, well-nourished Skin: normal, no rash, roberta matographism, urticaria, angioedema Neurologic exam: unremarkable Oral cavity: normal, no lesions Breasts : not performed Peripheral pulses: normal (2+) bilatera lly Back: normal Genitalia: not performed
--- OUTSIDE RECORDS SUMMARY | 2024-12-03 10:25 | XMS_ITS | Clinical Summary ---
Author Organization [facility] Address [address] [place] [address] [place] [address] Care Team Providers Care Servicer [employer] Name Role Phone Yuniel Mauricio MD Primary Care Provider + Allergies Active Allergy Reactions Criticality Noted Date Comments Cephalosporins Rash Medium 04/16/2015 Diphenhydramine Hcl Rash Medium 11/08/2006 Erythromycin Base Rash Medium 11/08/2006 Gadolinium-Containing Contrast Media Rash Medium 03/12/2021 Penicillins Rash Medium 11/08/2006 Sulfa (Sulfonamide Antibiotics) Rash Medium 10/14 Medications No known medications Active Problems No known active problems Social History Tobacco Use Types Packs/Day Years Used Date Smoking Tobacco: Never Assessed Comments Unknown Sex and Gender Information Value Date Recorded Sex Assigned at Not on file Legal Sex Female 8:16 AM CDT Gender Identity Not on file Sexual Orientation Not on file Last Filed Vital Signs Vital Sign Reading Time Taken Comments Blood Pressure 114/73 01/10/2022 10:21 AM CDT Pulse 64 01/10/2022 10:21 AM CDT Temperature 36.8 C (98.3 F) 01/10/2022 10:21 AM CDT Respiratory Rate 16 01/10/2022 10:21 AM CDT Oxygen Saturation 98% 01/10/2022 10:21 AM CDT Inhaled Oxygen Concentration - - Weight 61.2 kg (135 lb) 06/07/2021 10:06 AM CDT Height 167.6 cm (5' 6 ) 06/07/2021 10:06 AM CDT Body Mass Index 21.79 06/07/2021 10:06 AM CDT Plan of Treatment Health Maintenance Due Date Last Done Comments BREAST CANCER SCREENING 1995 COLORECTAL SCREENING 01/23/2000 Colorectal Cancer Screening 01/23/2000 FIT-DNA Q 3 years 01/23/2000 FIT/FOBT Q 1 year 01/23/2000 Flex Sig/CT Colonography Q 5 years 01/23/2000 PNEUMOCOCCAL VACCINE 50+ YEA RS (1 of 1 - PCV) 2005 OSTEOPOROSIS SCREENING 01/23/2020 INFLUENZA VACCINE (#1) 2024 0, 06/04/2018, 06/26/2017, Additional history exists DTAP/TDAP/TD VACCINES (3 - T d or Tdap) 02/26/2029 02/26/2019, 09/12/2008 RSV VACCINE (60+ or ) (1 - 1-dose 75+ series) 2030 ZOSTER VACCINE Completed 02/26/2019, 11/17/2018 Insurance MEDICARE [facility] MEDICARE SUPPLEMENT Care Teams Servicer [employer] Mach[employer] Relationship Specialty Start Date End Date Yuniel Mauricio MD [address] [place] [address] PCP - General 04/23/21
[2024-12-03 11:11] LABS: Influenza A QL RT-PCR Negative (Negative); Influenza B QL RT-PCR Negative (Negative); RSV RNA, RT-PCR Negative (Negative); SARS-CoV-2 RNA PCR Positive (Negative)
== END 2024-12-03 09:25 | disposition home or self-care (01) ==
LOC: ANHLAB 09:25
PROVIDERS: PCP Internal Medicine; Visit Provider Internal Medicine
DX: U07.1 COVID-19 (principal)
CPT/HCPCS: 87637

== ENCOUNTER 2025-09-02 11:13 | Outpatient (CLI) | payer MEDICARE, SELFPAY ==
--- NOTE | ~2025-09-02 | XR_ITS ---
EXAMINATION: XR chest 2V 09/02/2025 11:30 INDICATION: Cough PROCEDURE: 2 view chest COMPARISON: 07/09/2024 FINDINGS: No acute focal pneumonia or edema. The lungs are hyperinflated which is consistent with, but not diagnostic of chronic obstructive pulmonary disease. The cardiomediastinal silhouette is within normal limits. There are no pleural effusions. There is no pneumothorax suspected. Stable lower lobe atelectasis/scarring. IMPRESSION: 1: NO ACUTE CARDIOPULMONARY DISEASE. Reviewed, dictated and finalized at location [facility]. [employer]
--- OUTSIDE RECORDS SUMMARY | 2025-09-02 13:07 | XMS_ITS | Encounter Summary ---
Author Organization [facility] Address [address] [place] [address] Phone Care Team Providers Care Splunk Architect Name Role Phone Jennifer Matamoros MD Unavailable Juanjose Judd MD PhD Unavailable Galen Yuen MD Unavailable Barbara Blount MD Unavailable Rik Smith MD Unavailable Paul Sawyer MD Unavailable Yuniel Mauricio MD Primary Care Provider [phone] Renaldo Ortega MD Unavailable Encounter Details Date Type Department Care Team (Late st Contact Info) Description 08/27/2022 Orders Only [facility] Scanning, Provider Social History Tobacco Use Types Packs/Day Years Used Date Smoking Tobacco: Never Smokeless Tobacco: Never Alcohol Use Standard Drinks/Week Comments Not Currently 0 (1 standard drink = 0.6 oz pur e alcohol) since on gabapentin Social Connection and Isolation Panel Answer Date Recorded Frequency of Communication with Friends and Fami ly Not on file 07/18/2019 Frequency of Social Gatherings with Friends and Family Not on file 07/18/2019 Attends Orthodoxy Services Not on file 07/18 Active Member [...] on file 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 Gender Identity Female 02/06/2019 11:40 AM CDT [...] on filedocumented in this encounter Care Teams Splunk Architect Relationship Specialty [place] [address] [facility] * [place] [address] PCP - General Internal Medicine 03/04/20 Jennifer Matamoros MD [address] [place] [address] Referring Physician Obstetrics and Gynecology 06/26/18 Juanjose Judd MD PhD [address] [facility] [address] [place] [address] Referring Physician Neurology 06/26/18 [place] [address] [facility] * [place] [address] Consulting Physician Gastroenterology 06/26/18 [place] [address] [facility] * [place] [address] Surgeon Surgical Oncology 06/26/18 [place] [address] [facility] * [place] [address] Referring Physician Ophthalmology 06/26/18 [place] [address] [facility] * [place] [address] Referring Physician Dermatology 06/26/18 [place] [address] [facility] * [place] [address] Surgeon Thoracic Surgery 03/02/22 documented as of this encounter
--- OUTSIDE RECORDS SUMMARY | 2025-09-02 13:07 | XMS_ITS | Patient Health Record ---
Author Organization [facility] [employer] [place] ([address]) Address [address] [place] [address] Care Team Providers Care Oil Refinery Process Technician Name Role Phone Yuniel Mauricio Primary Care Provider Hannah Rondon Unavailable [phone] Allergies Allergen (clinical drug ingredient) Drug/Non Drug [...] mcg/inh 2 spray(s) intranasally 2 times a day; Duration: 30 day(s) Active Vitamin D3 25 MCG 1 tab(s) orally once a day Active LEVOCETIRIZINE 5 mg 1 tab(s) orally once a day (in the evening); Duration: 30 day(s) Active Levocetirizine Dihydrochloride 5 MG 1 tab(s) orally once a day (in the evening); Duration: 30 day(s) 12/28/2023 Active Famciclovir 500 MG 3 tab(s) orally as needed Active Azelastine HCl 137 MCG/SPRAY 2 spray(s) intranasally 2 times a day; Duration: 30 day(s) 12/28/2023 Active Social History Tobacco Use: Social History Observation Description Date Details (start date - stop date) Never Smoker NA - NA Tobacco Control (Standard) Question Answer Notes Tobacco use: Nonsmoker Problems Problem Type SNOMED Code ICD Code Onset Dates Problem Status W/U Status Risk Notes Problem Allergy to penicillin (31535603) Allergy status to penicillin (Z88.0) Active confirmed Problem Chronic allergic conjunctivitis (03507396) Other chronic allergic conjunctivitis (H10.45) Active confirmed Problem Allergic rhinitis (35817663) Other allergic rhinitis (J30.89) Active confirmed Problem Food allergy (915138286) Allergy to other foods (Z91.018) Active confirmed Problem Allergic rhinitis caused by animal hair and dander (485196932071655) Allergic rhinitis due to animal (cat) (dog) hair and dander (J30.81) Active confirmed Problem Allergy status t o other antibiotic agents (Z88.1) Active confirmed Plan Of Treatment No Information Insurance Providers Payer Name Payer Address Payer Phone Subscriber Number Group Number Insured Name Patient Relationship to Insured Coverage Start Date Coverage End Date [employer] (Medicare) Attention Claims [address] [facility] [place] [address] [id number] Leonarda Beltran Self - patient is the insured [facility] [address] [place] [address] [id number] Leonarda Beltran Self - patient is the insured Medical (General) History Medical History History ICD Code Allergy to other foods Z91.018 Surgical History Surgery Date(Month/Year) Tonsillectomy c section Breast surgery
--- OUTSIDE RECORDS SUMMARY | 2025-09-02 13:07 | XMS_ITS | Clinical Summary ---
Author Organization [facility] Address [address] [place] [address] Care Team Providers Care Ranch Hand Name Role Phone Jennifer Matamoros MD Unavailable Juanjose Judd MD PhD Unavailable Galen Yuen MD Unavailable Barbara Blount MD Unavailable Rik Smith MD Unavailable Paul Sawyer MD Unavailable Yuniel Mauricio MD Primary Care Provider [phone] Renaldo Ortega MD Unavailable Allergies Active Allergy Reactions Criticality Noted Date Comments Cephalosporins Rash Medium 04/16/2015 Erythromycin Base Rash Medium 11/08/2006 Gadolinium-Containing Contrast Media Rash Medium 03/12/2021 Sulfa (Sulfonamide Antibiotics) Rash Medium 10/14 Medications cholecalciferol (VITAMIN D-3) 25 mcg (1,000 unit) tablet 2 tablets (2,000 Units total) Active CALCIUM CITRATE ORAL Take 400 mg by mouth as needed Pt only takes when not getting enough CA in the day. 1 Active methylcellulose, laxative, (CITRUCEL) 500 mg tablet Take 1 [...] mg total) by mouth daily as needed Takes 3 tablets as needed. 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 08/27/2025 Dyslipidemia 08/27/2025 Ear pain, right 08/27/2025 Bunion of unspecified foot 08/27/2025 Hearing loss, bilateral 08/27/2025 Hemorrhoid 08/27/2025 History of tonsillectomy 08/27/2025 Hx of colonic polyps 08/27/2025 Itching 08/27/2025 Kyphoscoliosis 08/27/2025 Cervicalgia 08/27/2025 Mediastinal cyst 08/27/2025 Nasal folliculitis 08/27/2025 Otitis externa 08/27/2025 Paresthesias in left hand 08/27/2025 Callus of foot 08/27/2025 Postmenopausal syndrome 08/27/2025 Pre-diabetes 08/27/2025 Rhinorrhea 08/27/2025 Right arm pain 08/27/2025 Tingling in extremities 08/27/2025 Tinnitus of both ears 08/27/2025 TMJ (temporomandibular joint disorder) Viral illness 08/27/2025 Vitamin D deficiency 08/27/2025 Tarsal tunnel syndrome of both lower extremities [...] Encounters Date Type Department Care Team Description 08/27/2025 4:00 PM HAND SPRAYER Office Visit [facility] Medicine Obstetrics and Gynecology [address] [facility] 1st Floor [address] [place] [address] Rhonda Goodwin NP Encounter for well woman exam with routine gynecological exam (Primary Dx) from Last 3 Months Immunizations Immunization Administration Dates Next Due Hep A, Adult 08/22/2015,01/07/2015 Hep A, Unspecified 08/22/2015,01/07/2015 Hep B, Unspecified 06/17/1992,01/28/1992, 992 Influenza Virus Vaccine Trivalent Mdv 06/12/2024 Influenza, Quadrivalent, Hig h Dose, Preservative Free, Intrr 06/23/2020 Influenza, Quadrivalent, Spl it, Preservative Free, Intramuscular 06/04/2018 Influenza, Trivalent, High D ose, Split, Preservative Free, Intramuscular 06/23/2020 Influenza, Trivalent, IM (MDV) 07/21/2016,2014 Influenza, Trivalent, Preser vative Free, Intramuscular 06/26/2017,07/20/2016,06/14/2015 Influenza, Unspecified 06/19/2019,06/05/2018 Moderna SARS-CoV-2 Monovalen t Vaccination (12+ YRS) 10/11/2023,07/17/2021,11/21/2020,10/24 Moderna Sars-cov-2 Bivalent Vaccine 50 Mcg/0.5 mL (12+ YRS)-Blue/Machado 08/11/2022 PPD TEST 11/16/2017,12/13/2016 Tdap 02/03/2023,02/26/2019,09/12/2008 ZOSTER Recombinant 02/26/2019,11/17/2018 Surgical History Surgery Date Site/Laterality Comments TONSILLECTOMY 09/12/1959 - 09/11/1960 SECTION BREAST SURGERY 09/12/1999 - 09/11/2000 Right re-anastamoses of the duct NERVE BIOPSY 06/12/2019 - 07/12/2019 Right US GUIDED ASPIRATION ABSCESS HEMATOMA CYST SOFT TISSUE 03/02/2022 N/A COLONOSCOPY October 2020 SECTION 1990 Medical History Medical History Date Comments Cervicalgia Anemia pre-menopause Osteopenia Allergies Tinnitus Low back pain Peripheral neuropathy Dental disease inflamed tissue Parathyroid cyst Family History Medical History Relation Name Comments Prostate cancer Brother 1 Cancer Brother 2 RF Colonic polyp Father RF Stroke Father RF Breast cancer Maternal Grandmother bilate rally Breast cancer Maternal cousin 1 3 cousins Prostate cancer Maternal cousin 2 Aortic aneurysm Mother BF thoracic Arthritis Mother BF Breast cancer Mother BF Cancer Mother BF Hypertension Mother BF Miscarriages / Stillbirths Mother BF Osteoporosis Mother BF Rashes / Skin problems Mother BF Skin cancer Mother BF Thyroid disease Mother BF Colon cancer Paternal Grandfather GF Stroke Paternal Grandfather GF Cancer Paternal Grandmother GF Hypertension Sister DT Thyroid disease Sister DT Broken bones Neg Hx Hip fracture Neg Hx Kyphosis Neg Hx Scoliosis Neg Hx Relation Name Status Comments Brother 1 Brother 2 RF Alive Father RF Maternal Grandmother Maternal cousin 1 Maternal cousin 2 Mother BF Alive Paternal Grandfather GF Paternal Grandmother GF Alive Sister DT Social History Tobacco Use Types Packs/Day Years Used Date Smoking Tobacco: Never Passive Smoke Exposure: Never Smokeless Tobacco: Never Alcohol Use Standard Drinks/Week Comments Not Currently 0 (1 standard drink = 0.6 oz pur e alcohol) since on gabapentin Social Connection and Isolation Panel Answer Date Recorded Frequency of Communication with Friends and Fami ly Not on file 07/18/2019 Frequency of Social Gatherings with Friends and Family Not on file 07/18/2019 Attends Episcopal Services Not on file 07/18 Active Member [...] on file Legal Sex Female 7:57 PM HAND SPRAYER Gender Identity Female 02/06/2019 11:40 AM CDT Sexual Orientation Not on file Occupation Industry Job Start Date Job End Date Retired Not on file Not on file Not on file Obstetrics History Para Term AB IAB SAB Ectopic Multiple Livin g Live Births 1 Date Outcome GA Total Labor Labor/2nd/3rd Weight Sex Type Anes PTL Yaquelin A1 A5 Name Clin 1990 Term M CS-LT ranv Living Comments BABY HAD DECELS Last Filed Vital Signs Vital Sign Reading Time Taken Comments Blood Pressure 145/74 08/27/2025 4:07 PM HAND SPRAYER Pulse 61 08/27/2025 4:07 PM HAND SPRAYER Temperature 36.8 C (98.3 F) 04/11/2025 11:19 AM CDT Respiratory Rate 18 04/11/2025 11:1 9 AM CDT Oxygen Saturation 97% 04/11/2025 11: 19 AM CDT Inhaled Oxygen Concentration - - Weight 61.6 kg (135 lb 11.2 oz) 08/27/2025 4:07 PM HAND SPRAYER Height 166.2 cm (5' 5.43) 08/27/2025 4:07 PM CS T Body Mass Index 22.28 08/27/2025 4:07 PM HAND SPRAYER Plan of Treatment Health Maintenance Due Date Last Done Comments Fall Risk Assessment 1955 Pneumococcal vaccine 65+ (1 of 1 - PCV) 2005 Depression Screening 06/26/2020 06/26/2019, 06/26/20 18 Colon Cancer Screening-Colonoscopy 10/29/2020 10/29/2015 Well Visit 65+ 08/10/2024 08/10/2023, 07/13, 07/18/2019, Additional history exists Covid-19 Vaccine (2024- 6 season) 2025 10/11/2023, 08/11/2022, 12/25/2021, Additional history exists Influenza Vaccine (#1) 2025 , 06/23/2020, 06/23/2020, Additional history exists Breast Cancer Screening-Mammogram 04/11/2026 04/11/2025, 03/28/2024, 03/29/2023, Additional history exists Osteoporosis Screening-Bone Density Scan 01/23/2027 01/23/2025, 01/18/2024, 01/05/2023, Additional history exists DTaP/Tdap/Td Vaccine (4 - Td or Tdap) 02/03/2033 02/03/2023, 02/26/2019, 09/12/2008 Hepatitis B Screening Completed 06/17/1992 , 01/28/1992, 12/25/1991 Colon Cancer Screening-CT Colonography Discontinued 10/29/2015 Colon Cancer Screening-DNA Stool Discontinued 10/29/19 16 Colon Cancer Screening-FIT Discontinued 10/29/2015 Colon Cancer Screening-Sigmoidoscopy Discontinued 10/29/2015 Hepatitis C Screening Completed 06/28/2018 Zoster Vaccine Completed 02/26/2019, 11/17/2018 Procedures Procedure Name Priority Date/Time Associated Diagnosis Comments SCREENING MAMMOGRAM BILATERAL W SHARIF Schedule Routine, Read Routine (OP Routine) 04/11/2025 12:20 PM CDT Family history of breast cancer Encounter for screening mammogram for malignant neoplasm of breast DEXA TBS AXIAL SKELETON BONE DENSITY 1 OR MORE SITES Schedule Routine, Read Routine (OP Routine) 01/23/2025 1:24 PM CDT Osteoporosis, unspecified osteoporosis type, unspecified pathological fracture presence HEPATITIS C ANTIBODY Routine 06/28/2018 9:51 AM CDT HM COLONOSCOPY Routine 10/29/2015 from Last 3 Months or Most Recently Relevant to Health Maintenance Results * Screening Mammogram Bilateral W Sharif (04/11/2025 12:20 PM CDT) Anatomical Region Laterality Modality Breast Bilateral Mammography Impressions 04/15/2025 1:49 PM CDT Bilateral No evidence of malignancy in either breast. OVERALL BI-RADS FINAL ASSESSMENT: 1 - Negative RECOMMENDATION: Recommend bilateral annual screening mammography. If supplemental screening is desired for heterogeneously dense breast tissue, consider breast MRI every 1-2 years. If breast MRI cannot be performed, contrast-enhanced mammography is an alternative. Narrative 04/15/2025 1:49 PM CDT EXAMINATION: Screening Mammogram Bilateral W Sharif: 04/11/2025 COMPARISON: Relevant prior studies available at the time of interpretation were reviewed, including the most recent mammogram on: 03/28/2024. TECHNIQUE: Mammography was performed with 2D and digital breast tomosynthesis (DBT) images. CAD was utilized. BREAST PARENCHYMAL COMPOSITION: The breasts are heterogeneously dense, which may obscure small masses. FINDINGS: Bilateral There is no suspicious mass, calcification, or architectural distortion in either breast. us Kendal Sarkar NP IMG MAMMO PROCEDURES Final Result * Dexa TBS Axial Skeleton Bone Density 1 or more sites (01/23/2025 1:24 PM CDT) Anatomical Region Laterality Modality Wrist, Body N/A Radiographic Rosa ging Narrative 01/23/2025 1:49 PM CDT Patient Name: Leonarda Nguyễn Date of : 1955 Date of scan: 01/23/2025 Bone mineral density was performed on a Hologic Discovery Densitometer. Based on machine cross-calibration and precision studies the least significant changes of this densitometer is 0.024 g/cm2 at the spine, 0.020 g/cm2 at the total proximal femur, and 0.014g/cm2 at the forearm. HISTORY: This is a 70 y.o. postmenopausal female with a history of [...] the average density was calculated to be 1.041 gm/cm2. This corresponds to a T-score (standard deviations from the mean of young adults) of -0.1. When compared to the previous study of 01/18/2024 there has been no significant changes in bone density. BONE MINERAL DENSITY OF THE PROXIMAL FEMUR Bone Mineral Density (BMD) of the left hip total was found to be 0.839 gm/cm2. This corresponds to a T-score standard deviations from the mean of young adults of -0.8. Femoral neck is 0.740 gm/cm2 with a T-score (standard deviations from the mean of young adults) of -1.0. When compared to the previous study of 01/18/2024 there has been no significant changes in bone density. SUMMARY: Bone mineral density is near the young adult normal mean with no increased risk for fracture. There has been no significant changes in bone density since previous measurement. The lumbar spine Trabecular Bone Score is 1.378 which suggests normal bone microarchitecture, compared to [...] mineral density scan were prepared by Chelsea James)([facility])who is accredited by the International Society of Clinical Densitometry. The overall patient assessment and scan interpretation were performed by Leonarda Ferris M.D. who is certified by the International Society of Clinical Densitometry. [id number] us Leonarda Ferris MD [facility] DXA PROCEDURES Final R esult * Hepatitis C antibody (06/28/2018 9:51 AM CDT) [facility] Hep C Ab <0.1 0.0 - 0.9 s/co ratio [facility] - 01 Comment: Negative: < 0.8 Indeterminate: 0.8 - 0.9 Positive: > 0.9 The CDC recommends that a positive HCV antibody result be followed up with a HCV Nucleic Acid Amplification test ([id number]). 06/28/2018 9:51 AM CDT 06/28/2018 Narrative [facility] - 06/29/2018 10:13 AM CDT Performed at: [facility] [id number] Gaming Cage Worker: Tyshawn Mason PhD, Phone: [phone] us Juanjose Katz MD LAB MICROBIOLOGY - GEN ERAL ORDERABLES Final Result [facility] - 01 * COLONOSCOPY (10/29/2015) [facility] Colonoscopy Unknown Historical Provider HEALTH MAINTENANCE Final Result from Last 3 Months or Most Recently Relevant to Health Maintenance Insurance [facility] CHOICE PLUS MEDICARE AAR ANTH ACCESS MEDICARE [facility] Care Teams Ranch Hand Relationship Specialty [place] [address] * [place] [address] PCP - General Internal Medicine 03/04/20 Jennifer Matamoros MD [address] [place] [address] Referring Physician Obstetrics and Gynecology 06/26/18 Juanjose Judd MD PhD [address] [facility] [address] [place] [address] Referring Physician Neurology 06/26/18 [place] [address] * [place] [address] Consulting Physician Gastroenterology 06/26/18 [place] [address] * [place] [address] Surgeon Surgical Oncology 06/26/18 [place] [address] * [place] [address] Referring Physician Ophthalmology 06/26/18 [place] [address] * [place] [address] Referring Physician Dermatology 06/26/18 [place] [address] * [place] [address] Surgeon Thoracic Surgery 03/02/22
--- OUTSIDE RECORDS SUMMARY | 2025-09-02 13:07 | XMS_ITS | Clinical Summary ---
Author Organization [facility] Address [address] [place] [address] Care Team Providers Care It Consulting Director Name Role Phone Yuniel Mauricio MD Primary Care Provider [phone] Source Comments [facility],non-owned Affiliates and Associated Physician Practices is amultiple site organization consisting of ambulatory clinics and hospital sitesin [place], [place], [place] and [place]. This disclosure is being madepursuant to the Care Everywhere program and may not contain all information available regarding this patient. Last updated 18.[facility] Allergies Active Allergy Reactions Criticality Noted Date Comments Cephalosporins Rash Medium 04/16/2015 Erythromycin Urticaria Medium 09/07/2019 Sulfa Antibiotics Unknown 01/03/2024 Medications * Be aware that medications may not be up to date on this document. Alwaysverify current medications with the patient. Vitamin D3 (CHOLECALCIFEROL ) 50 MCG (1999) capsule Take 1,000 Units [...] syndrome of both lower extremities 12/22/2022 Immunizations Immunization Administration Dates Next Due COVID MODERNA BIVALENT 12Y+ 50MCG/0.5ML 08/11/20 22 MODERNA SARS-COV-2 COVID-19 VACCINE 0.25ML 12/25 [...] Tobacco: Never Tobacco Cessation:Counseling Given: Not Answered Comments Unknown Sex and Gender Information Value Date Recorded Sex Assigned at Not on file Legal Sex Female 10:14 AM CDT Gender Identity Not on file Sexual Orientation Not on file Last Filed Vital Signs Vital Sign Reading Time Taken Comments Blood Pressure 120/64 01/08/2025 2:02 PM CDT Pulse 64 01/08/2025 2:02 PM CDT Temperature 37 C (98.6 F) 09/07/2019 4:34 PM TRANSFER STATION OPERATOR Respiratory Rate 14 01/08/2025 2:02 PM CDT Oxygen Saturation 98% 01/08/2025 2:02 PM CDT Inhaled Oxygen Concentration - - Weight 61.7 kg (136 lb) 01/08/2025 2:02 PM CDT Height 167.6 cm (5' 6) 01/08/2025 2:02 PM CDT Body Mass Index 21.95 01/08/2025 2:02 PM CDT Plan of Treatment Upcoming Encounters Date Type Department Care Team (Late st Contact Info) Description 01/07/2026 2:00 PM CDT Office Visit [facility] Health Neurosciences [address] [facility] [address] [place] [phone] [place] [address] [facility] [address] [place] [address] Health Maintenance Due Date Last Done Comments [...] 2005 ZOSTER VACCINE (1 of 2) 2005 DEPRESSION SCREENING 09/12/2024 COVID-19 VACCINE ( - season) 2025 08/11/2022, 12/25/2021, 07/17/2021, Additional history exists INFLUENZA VACCINE (#1) 2025 , 06/23/2020, 06/19/2019, Additional history exists MAMMOGRAM 03/28/2026 03/28/2024, 03/12, 03/29/2023, Additional history [...] on patient's age to complete this topic Insurance MEDICARE [facility] Care Teams It Consulting Director Relationship Specialty Start Date End Date Yuniel Mauricio MD [address] [place] [address] PCP - General Internal Medicine 11/18/22
--- OUTSIDE RECORDS SUMMARY | 2025-09-02 13:07 | XMS_ITS | Encounter Summary ---
Author Organization [facility] Address [address] [place] [address] Phone Care Team Providers Care Legal Assistant Name Role Phone Jennifer Matamoros MD Unavailable Juanjose Judd MD PhD Unavailable Galen Yuen MD Unavailable Barbara Blount MD Unavailable Rik Smith MD Unavailable Paul Sawyer MD Unavailable [phone] Yuniel Mauricio MD Primary Care Provider Renaldo Ortega MD Unavailable Encounter Details Date Type Department Care Team (Late st Contact Info) Description 11/29/2024 Orders Only [facility] Scanning, Provider [...] and Family Not on file 07/18/2019 Attends [employer] Not on file 07/18 Active Member [...] on file Legal Sex Female 7:57 PM [employer] Gender Identity Female 02/06/2019 11:40 AM CDT Sexual Orientation Not on file Occupation Industry Job Start Date Job End Date Retired Not on file Not on file Not on file documented as of this encounter Plan of Treatment Not on file documented as of this encounter Procedures Procedure Name Priority Date/Time Associated Diagnosis Comments SCAN - LABS 11/29/2024 documented in this encounter Results * SCAN - LABS (11/29/2024) us Provider Scanning Final Result documented in this encounter Visit Diagnoses Not on filedocumented in this encounter Care Teams Legal Assistant Relationship Specialty [place] [id number] * [place] [address] PCP - General Internal Medicine 03/04/20 Jennifer Matamoros MD [address] [place] [address] Referring Physician Obstetrics and Gynecology 06/26/18 Juanjose Judd MD PhD [address] [facility] [address] [place] [address] Referring Physician Neurology 06/26/18 [place] [address] * [place] [address] Consulting Physician Gastroenterology 06/26/18 [place] [address] [facility] * [place] [address] Surgeon Surgical Oncology 06/26/18 [place] [address] [facility] * [place] [address] Referring Physician Ophthalmology 06/26/[address] [place] [address] [facility] * [place] [address] Referring Physician Dermatology 06/26/18 [place] [address] [facility] * [place] [address] Surgeon Thoracic Surgery 03/02/22 documented as of this encounter
--- OUTSIDE RECORDS SUMMARY | 2025-09-02 13:08 | XMS_ITS | Clinical Summary ---
[facility] Address [address] [place] [id number] Care Team Providers Care Oversize Load Pilot Escort Name Role Phone Yuniel Mauricio MD Primary [...] 10:06 AM CDT Height 167.6 cm (5' 6) 06/07/2021 10:06 AM CDT Body Mass Index 21.79 06/07/2021 10:06 AM CDT Plan of Treatment Health Maintenance Due Date Last Done Comments COLORECTAL SCREENING 01/23/2000 Colorectal Cancer Screening 01/23/2000 FIT-DNA Q 3 years 01/23/2000 FIT/FOBT Q 1 year 01/23/2000 Flex Sig/CT Colonography Q 5 years 01/23/2000 PNEUMOCOCCAL VACCINE 50+ YEA RS (1 of 1 - PCV) 2005 OSTEOPOROSIS SCREENING 01/23/2020 BREAST CANCER SCREENING 03/10/2022 03/10/2021 INFLUENZA VACCINE (#1) 2025 0, 06/04/2018, 06/26/2017, Additional history exists DTAP/TDAP/TD VACCINES (3 - T d or Tdap) 02/26/2029 02/26/2019, 09/12/2008 RSV VACCINE (60+ or ) (1 - 1-dose 75+ series) 2030 ZOSTER VACCINE Completed 02/26/2019, 11/17/2018 Insurance MEDICARE [facility] MEDICARE SUPPLEMENT Care Teams Oversize Load Pilot Escort Relationship Specialty Start Date End Date Yuniel Mauricio MD [address] [place] [address] PCP - General 04/23/21
== END 2025-09-02 11:14 | disposition home or self-care (01) ==
PROVIDERS: PCP Internal Medicine; Visit Provider Internal Medicine
DX: R05.9 Cough, unspecified (principal)
CPT/HCPCS: 71046